=== PATIENT | male | born 1955 ===

== ENCOUNTER 2019-06-21 22:59 | Observation (INO) ==
[2019-06-21 23:49] LABS: Basophils # 0.1 10*3/uL (0.0-0.2); Basophils % 1.3 % (0.0-0.8); Eosinophils # 0.3 10*3/uL (0.0-0.87); Eosinophils % 3.3 % (0.00-10.9); Hematocrit 29.6 VOL% (42.0-52.0); Immature Granulocytes % 0.5 %; Immature Granulocytes Absolute 0.04 #; Lymphocytes # 1.8 10*3/uL (1.4-4.0); Mean Corpuscular HGB Conc 30.4 GM/DL (32-36); Mean Corpuscular Volume 93.4 FL (87-102); Mean Platelet Volume 9.8 FL (9.6-12.0); Monocytes % 8.4 % (1.7-12.7); Neutrophils % 63.5 % (38.7-73.9); Platelet Count 269 T/CUMM (130-400); Red Blood Count 3.17 MC/CUMM (3.8-5.5); Red Cell Distribution Width 17.1 % (9.3-17.3); White Blood Count 7.8 T/CUMM (4-12)
[2019-06-21 23:53] LABS: PT Patient Result 10.8 SECS (9.6-12.2)
[2019-06-22 00:09] LABS: Albumin 2.4 G/DL (3.4-5.0); Bilirubin,Total 0.6 MG/DL (0.2-1.0); Calcium 7.9 MG/DL (8.5-10.1); Osmolality,Calculated 281.8 MOS/KG (273-304); Total Protein 7.5 G/DL (6.4-8.3)
[2019-06-22] MEDS ORDERED: NITROGLYCERIN 2% OINT 1 INCH/GM PACK TOP STA (00:17)
[2019-06-22] MEDS ORDERED: ONDANSETRON 4 MG/2 ML VIAL IV PRN (01:07)
[2019-06-22] MEDS ORDERED: DEXTROSE 50% 25 GM/50 ML VIAL IV PRN (01:07)
[2019-06-22] MEDS ORDERED: GLUCAGON 1 MG VIAL IM PRN (01:07)
[2019-06-22] MEDS ORDERED: ACETAMINOPHEN 325 MG TABLET PO PRN (01:07)
[2019-06-22] MEDS: HEPARIN 5,000 UNIT/1 ML VIAL SUBCUT SCH ×2 (03:05→09:01)
[2019-06-22 08:17] LABS: Risk Ratio 2.22; VLDL CHOLESTEROL 16.6 MG/DL
[2019-06-22] MEDS: INSULIN REGULAR 100 UNIT/ML SUBCUT SCH ×2 (08:23→13:24)
[2019-06-22] MEDS ORDERED: NITROGLYCERIN 2% OINT 1 INCH/GM PACK TOP SCH (09:00)
[2019-06-22] MEDS ORDERED: cephALEXin 500 MG CAPSULE PO SCH (09:00)
[2019-06-22] MEDS ORDERED: PANTOPRAZOLE 40 MG TABLET PO SCH (09:00)
[2019-06-22] MEDS ORDERED: GABAPENTIN 300 MG CAPSULE PO SCH (09:00)
[2019-06-22] MEDS ORDERED: CLOPIDOGREL 75 MG TABLET PO SCH (09:00)
[2019-06-22] MEDS ORDERED: hydrALAZINE 25 MG TABLET PO SCH (09:00)
[2019-06-22 13:56] VITALS: BP 124/72
[2019-06-22] MEDS ORDERED: amLODIPine 5 MG TABLET PO SCH (21:00)
[2019-06-22] MEDS ORDERED: LOSARTAN 50 MG TABLET PO SCH (21:00)
[2019-06-22] MEDS ORDERED: ATORVASTATIN 40 MG TABLET PO SCH (21:00)
== END 2019-06-22 14:18 | disposition home or self-care (01) ==
LOC: EDUNIT# → EDBD → N.ED 22:59 → N.EDINP 22:59 → N.5E 06-22 01:52
PROVIDERS: ADMIT Internal Medicine; ATTEND Internal Medicine

== ENCOUNTER 2020-05-23 09:44 | Inpatient (IN) ==
[2020-05-23 10:59] LABS: Basophils % 0.3 % (0.0-0.8); Eosinophils # 0.1 10*3/uL (0.0-0.87); Eosinophils % 0.6 % (0.00-10.9); Hematocrit 27.7 VOL% (42.0-52.0); Hemoglobin 9.6 GM/DL (14.0-18.0); Immature Granulocytes % 0.5 %; Immature Granulocytes Absolute 0.06 #; Lymphocytes # 1.3 10*3/uL (1.4-4.0); Lymphocytes % 10.7 % (21.2-54.2); Mean Corpuscular HGB Conc 34.7 GM/DL (32-36); Mean Corpuscular Volume 89.6 FL (87-102); Mean Platelet Volume 10.2 FL (9.6-12.0); Monocytes % 6.3 % (1.7-12.7); Neutrophils % 81.6 % (38.7-73.9); Platelet Count 240 T/CUMM (130-400); Red Blood Count 3.09 MC/CUMM (3.8-5.5); Red Cell Distribution Width 13.1 % (9.3-17.3); White Blood Count 12.3 T/CUMM (4-12)
[2020-05-23 11:42] LABS: Calcium 8.1 MG/DL (8.5-10.1); Osmolality,Calculated 280.5 MOS/KG (273-304)
[2020-05-23 11:54] LABS: INR 1.1; PT Patient Result 11.7 SECS (9.8-11.9); Partial Thromboplastin Time 36.7 SECS (23.9-33.8)
[2020-05-23] MEDS ORDERED: ONDANSETRON 4 MG/2 ML VIAL IV PRN (14:24)
[2020-05-23] MEDS ORDERED: GLUCAGON 1 MG VIAL IM PRN (14:24)
[2020-05-23] MEDS ORDERED: DEXTROSE 50% 25 GM/50 ML VIAL IV PRN (14:24)
[2020-05-23] MEDS ORDERED: ACETAMINOPHEN 325 MG TABLET PO PRN (14:24)
[2020-05-23] MEDS: PIPERACILLIN/TAZOBACTAM 3,375 MG in SODIUM CHLORIDE 0.9% 100 ML IV SCH (16:01)
[2020-05-23] MEDS: INSULIN REGULAR 100 UNIT/ML SUBCUT SCH (17:39)
[2020-05-23] MEDS: HYDROmorphone 2 MG/1 ML VIAL IV PRN (17:39)
[2020-05-23] MEDS: carvediloL 3.125 MG TABLET PO SCH (21:38)
[2020-05-23] MEDS: LOSARTAN 50 MG TABLET PO SCH (21:39)
[2020-05-24] MEDS: INSULIN REGULAR 100 UNIT/ML SUBCUT SCH ×4 (01:07→17:49)
[2020-05-24] MEDS: PIPERACILLIN/TAZOBACTAM 3,375 MG in SODIUM CHLORIDE 0.9% 100 ML IV SCH ×2 (03:45→16:15)
[2020-05-24 05:52] LABS: INR 1.1; PT Patient Result 11.8 SECS (9.8-11.9)
[2020-05-24] MEDS ORDERED: fentaNYL 100 MCG/2 ML VIAL IV ONE (08:00)
[2020-05-24] MEDS ORDERED: MIDAZOLAM 2 MG/2 ML VIAL IV ONE (08:00)
[2020-05-24] MEDS: ATORVASTATIN 40 MG TABLET PO SCH (08:28)
[2020-05-24] MEDS: carvediloL 3.125 MG TABLET PO SCH ×2 (08:28→17:38)
[2020-05-24] MEDS: ASPIRIN EC 81 MG TABLET PO SCH (08:28)
[2020-05-24] MEDS: PANTOPRAZOLE 40 MG TABLET PO SCH (08:29)
[2020-05-24] MEDS ORDERED: HEPARIN/NACL 0.9% 2 UNITS/ML 2,000 ML IV ONE (12:21)
[2020-05-24] MEDS ORDERED: HEPARIN 5,000 UNIT/1 ML VIAL ONE (14:18)
[2020-05-24] MEDS ORDERED: HEPARIN 5,000 UNIT/1 ML VIAL IV ONE (15:15)
[2020-05-24] MEDS: LOSARTAN 50 MG TABLET PO SCH (20:42)
[2020-05-25] MEDS: INSULIN REGULAR 100 UNIT/ML SUBCUT SCH ×4 (01:34→18:01)
[2020-05-25] MEDS: PIPERACILLIN/TAZOBACTAM 3,375 MG in SODIUM CHLORIDE 0.9% 100 ML IV SCH ×2 (03:40→16:20)
[2020-05-25] MEDS: HYDROmorphone 2 MG/1 ML VIAL IV PRN (08:26)
[2020-05-25] MEDS: carvediloL 3.125 MG TABLET PO SCH ×2 (10:30→16:20)
[2020-05-25] MEDS: PANTOPRAZOLE 40 MG TABLET PO SCH (10:31)
[2020-05-25] MEDS: ASPIRIN EC 81 MG TABLET PO SCH (10:31)
[2020-05-25] MEDS: ATORVASTATIN 40 MG TABLET PO SCH (10:31)
[2020-05-25] MEDS ORDERED: LIDOCAINE 2% 5 ML VIAL ONE (14:03)
[2020-05-25] MEDS ORDERED: propofoL 200 MG/20 ML VIAL IV ONE (14:03)
[2020-05-25] MEDS ORDERED: MIDAZOLAM 2 MG/2 ML VIAL ONE (14:03)
[2020-05-25] MEDS ORDERED: PHENYLEPHRINE 1 MG/10 ML SYRINGE IV ONE (14:03)
[2020-05-25] MEDS ORDERED: SEVOFLURANE 1 UNIT/15 MINUTE INH ONE (14:03)
[2020-05-25] MEDS ORDERED: ONDANSETRON 4 MG/2 ML VIAL ONE (14:03)
[2020-05-25] MEDS ORDERED: DEXTROSE 50% 25 GM/50 ML VIAL IV PRN (16:08)
[2020-05-25] MEDS ORDERED: GLUCAGON 1 MG VIAL IM PRN (16:08)
[2020-05-25] MEDS: cilostazoL 50 MG TABLET PO SCH (20:41)
[2020-05-25] MEDS: LOSARTAN 50 MG TABLET PO SCH (21:46)
[2020-05-26] MEDS: INSULIN REGULAR 100 UNIT/ML SUBCUT SCH ×4 (01:00→18:42)
[2020-05-26] MEDS: PIPERACILLIN/TAZOBACTAM 3,375 MG in SODIUM CHLORIDE 0.9% 100 ML IV SCH ×2 (03:22→15:25)
[2020-05-26] MEDS: HYDROmorphone 2 MG/1 ML VIAL IV PRN (05:22)
[2020-05-26] MEDS: ATORVASTATIN 40 MG TABLET PO SCH (08:31)
[2020-05-26] MEDS: carvediloL 3.125 MG TABLET PO SCH ×2 (08:31→17:10)
[2020-05-26] MEDS: PANTOPRAZOLE 40 MG TABLET PO SCH (08:31)
[2020-05-26] MEDS: cilostazoL 50 MG TABLET PO SCH ×2 (08:31→22:00)
[2020-05-26] MEDS: ASPIRIN EC 81 MG TABLET PO SCH (08:31)
[2020-05-26 10:38] LABS: Basophils # 0.1 10*3/uL (0.0-0.2); Basophils % 0.4 % (0.0-0.8); Eosinophils # 0.2 10*3/uL (0.0-0.87); Eosinophils % 1.6 % (0.00-10.9); Hematocrit 27.1 VOL% (42.0-52.0); Hemoglobin 9.1 GM/DL (14.0-18.0); Immature Granulocytes % 0.6 %; Immature Granulocytes Absolute 0.09 #; Lymphocytes # 1.6 10*3/uL (1.4-4.0); Lymphocytes % 11.6 % (21.2-54.2); Mean Corpuscular HGB Conc 33.6 GM/DL (32-36); Mean Corpuscular Volume 93.4 FL (87-102); Monocytes % 8.4 % (1.7-12.7); Neutrophils % 77.4 % (38.7-73.9); Platelet Count 263 T/CUMM (130-400); Red Cell Distribution Width 13.2 % (9.3-17.3); White Blood Count 13.9 T/CUMM (4-12)
[2020-05-26] MEDS: LOSARTAN 50 MG TABLET PO SCH ×2 (22:00→22:10)
[2020-05-27] MEDS: INSULIN REGULAR 100 UNIT/ML SUBCUT SCH ×4 (00:29→18:03)
[2020-05-27] MEDS: PIPERACILLIN/TAZOBACTAM 3,375 MG in SODIUM CHLORIDE 0.9% 100 ML IV SCH (04:06)
[2020-05-27] MEDS: cilostazoL 50 MG TABLET PO SCH ×2 (08:47→21:16)
[2020-05-27] MEDS: PANTOPRAZOLE 40 MG TABLET PO SCH (08:47)
[2020-05-27] MEDS: ASPIRIN EC 81 MG TABLET PO SCH (08:47)
[2020-05-27] MEDS: ATORVASTATIN 40 MG TABLET PO SCH (08:47)
[2020-05-27] MEDS: carvediloL 3.125 MG TABLET PO SCH ×2 (08:47→17:52)
[2020-05-27] MEDS ORDERED: LOPERAMIDE 2 MG CAPSULE PO PRN (09:36)
[2020-05-27] MEDS ORDERED: LOPERAMIDE 2 MG CAPSULE PO ONE (09:45)
[2020-05-27] MEDS ORDERED: VANCOMYCIN INJ 1,000 MG in SODIUM CHLORIDE 0.9% 250 ML IV ONE (10:00)
[2020-05-27] MEDS: LACTOBACILLUS ACIDOPHILUS/BULGARICUS 1 PACKET PO SCH ×3 (13:30→21:16)
[2020-05-27] MEDS: LOSARTAN 50 MG TABLET PO SCH (21:16)
[2020-05-28] MEDS: INSULIN REGULAR 100 UNIT/ML SUBCUT SCH ×4 (01:35→17:37)
[2020-05-28] MEDS: ASPIRIN EC 81 MG TABLET PO SCH (12:32)
[2020-05-28] MEDS: carvediloL 3.125 MG TABLET PO SCH ×2 (12:32→16:34)
[2020-05-28] MEDS: LACTOBACILLUS ACIDOPHILUS/BULGARICUS 1 PACKET PO SCH ×4 (12:32→20:36)
[2020-05-28] MEDS: cilostazoL 50 MG TABLET PO SCH ×2 (12:32→20:36)
[2020-05-28] MEDS: ATORVASTATIN 40 MG TABLET PO SCH (12:32)
[2020-05-28] MEDS: PANTOPRAZOLE 40 MG TABLET PO SCH (12:33)
[2020-05-28] MEDS: LOSARTAN 50 MG TABLET PO SCH (20:36)
[2020-05-29] MEDS: INSULIN REGULAR 100 UNIT/ML SUBCUT SCH ×4 (00:01→17:21)
[2020-05-29] MEDS: carvediloL 3.125 MG TABLET PO SCH ×2 (07:42→17:00)
[2020-05-29] MEDS: cilostazoL 50 MG TABLET PO SCH ×2 (09:00→20:24)
[2020-05-29] MEDS: LACTOBACILLUS ACIDOPHILUS/BULGARICUS 1 PACKET PO SCH ×4 (09:00→20:23)
[2020-05-29] MEDS: PANTOPRAZOLE 40 MG TABLET PO SCH (09:00)
[2020-05-29] MEDS: ASPIRIN EC 81 MG TABLET PO SCH (09:00)
[2020-05-29] MEDS: ATORVASTATIN 40 MG TABLET PO SCH (09:00)
[2020-05-29] MEDS: LOSARTAN 50 MG TABLET PO SCH (20:24)
[2020-05-30] MEDS: INSULIN REGULAR 100 UNIT/ML SUBCUT SCH ×4 (00:27→18:12)
[2020-05-30] MEDS: cilostazoL 50 MG TABLET PO SCH ×2 (09:01→20:42)
[2020-05-30] MEDS: PANTOPRAZOLE 40 MG TABLET PO SCH (09:01)
[2020-05-30] MEDS: ASPIRIN EC 81 MG TABLET PO SCH (09:01)
[2020-05-30] MEDS: carvediloL 3.125 MG TABLET PO SCH ×2 (09:01→16:42)
[2020-05-30] MEDS: LACTOBACILLUS ACIDOPHILUS/BULGARICUS 1 PACKET PO SCH ×4 (09:01→20:42)
[2020-05-30] MEDS: ATORVASTATIN 40 MG TABLET PO SCH (09:01)
[2020-05-30] MEDS: LOSARTAN 50 MG TABLET PO SCH (20:42)
[2020-05-31] MEDS: INSULIN REGULAR 100 UNIT/ML SUBCUT SCH ×5 (00:57→23:59)
[2020-05-31 08:28] LABS: Calcium 8.6 MG/DL (8.5-10.1); Osmolality,Calculated 274.2 MOS/KG (273-304)
[2020-05-31] MEDS ORDERED: propofoL 200 MG/20 ML VIAL IV ONE (12:18)
[2020-05-31] MEDS ORDERED: ePHEDrine 50 MG/ML VIAL ONE (12:19)
[2020-05-31] MEDS ORDERED: MIDAZOLAM 2 MG/2 ML VIAL ONE (12:19)
[2020-05-31] MEDS ORDERED: LIDOCAINE 2% 5 ML VIAL ONE (12:19)
[2020-05-31] MEDS ORDERED: SEVOFLURANE 1 UNIT/15 MINUTE INH ONE (12:19)
[2020-05-31] MEDS ORDERED: fentaNYL 100 MCG/2 ML VIAL ONE (12:19)
[2020-05-31] MEDS ORDERED: PHENYLEPHRINE 1 MG/10 ML SYRINGE IV ONE (12:20)
[2020-05-31] MEDS: carvediloL 3.125 MG TABLET PO SCH ×2 (13:46→17:58)
[2020-05-31] MEDS: cilostazoL 50 MG TABLET PO SCH ×2 (13:47→21:24)
[2020-05-31] MEDS: ATORVASTATIN 40 MG TABLET PO SCH (13:47)
[2020-05-31] MEDS: LACTOBACILLUS ACIDOPHILUS/BULGARICUS 1 PACKET PO SCH ×4 (13:47→21:23)
[2020-05-31] MEDS: PANTOPRAZOLE 40 MG TABLET PO SCH (13:47)
[2020-05-31] MEDS: ASPIRIN EC 81 MG TABLET PO SCH (13:47)
[2020-05-31] MEDS ORDERED: VANCOMYCIN INJ 1,000 MG in SODIUM CHLORIDE 0.9% 250 ML IV ONE (16:25)
[2020-05-31] MEDS: LOSARTAN 50 MG TABLET PO SCH (21:24)
[2020-06-01] MEDS: INSULIN REGULAR 100 UNIT/ML SUBCUT SCH ×3 (06:20→17:29)
[2020-06-01] MEDS: ASPIRIN EC 81 MG TABLET PO SCH (09:23)
[2020-06-01] MEDS: PANTOPRAZOLE 40 MG TABLET PO SCH (09:23)
[2020-06-01] MEDS: ATORVASTATIN 40 MG TABLET PO SCH (09:23)
[2020-06-01] MEDS: LACTOBACILLUS ACIDOPHILUS/BULGARICUS 1 PACKET PO SCH ×4 (09:23→22:38)
[2020-06-01] MEDS: cilostazoL 50 MG TABLET PO SCH ×2 (09:23→22:37)
[2020-06-01] MEDS: carvediloL 3.125 MG TABLET PO SCH ×2 (09:23→16:47)
[2020-06-01] MEDS: LOSARTAN 50 MG TABLET PO SCH (22:37)
[2020-06-02] MEDS: INSULIN REGULAR 100 UNIT/ML SUBCUT SCH ×3 (01:10→18:29)
[2020-06-02 08:56] LABS: Basophils % 0.2 % (0.0-0.8); Eosinophils # 0.2 10*3/uL (0.0-0.87); Eosinophils % 1.9 % (0.00-10.9); Hemoglobin 7.4 GM/DL (14.0-18.0); Immature Granulocytes % 0.8 %; Immature Granulocytes Absolute 0.07 #; Lymphocytes # 1.3 10*3/uL (1.4-4.0); Lymphocytes % 14.1 % (21.2-54.2); Mean Corpuscular HGB Conc 33.6 GM/DL (32-36); Mean Corpuscular Volume 91.7 FL (87-102); Mean Platelet Volume 9.9 FL (9.6-12.0); Monocytes % 6.9 % (1.7-12.7); Neutrophils % 76.1 % (38.7-73.9); Platelet Count 294 T/CUMM (130-400); Red Cell Distribution Width 12.8 % (9.3-17.3); White Blood Count 8.9 T/CUMM (4-12)
[2020-06-02 09:32] LABS: Calcium 8.2 MG/DL (8.5-10.1); Osmolality,Calculated 276.5 MOS/KG (273-304)
[2020-06-02] MEDS ORDERED: VANCOMYCIN 500 MG VIAL ONE (12:45)
[2020-06-02] MEDS ORDERED: GLUCAGON 1 MG VIAL IM PRN (13:37)
[2020-06-02] MEDS ORDERED: DEXTROSE 50% 25 GM/50 ML VIAL IV PRN (13:37)
[2020-06-02] MEDS ORDERED: propofoL 200 MG/20 ML VIAL IV ONE (13:48)
[2020-06-02] MEDS ORDERED: SEVOFLURANE 1 UNIT/15 MINUTE INH ONE (13:48)
[2020-06-02] MEDS ORDERED: PHENYLEPHRINE DRIP 20 MG/250 ML PREMIX IV ONE (13:49)
[2020-06-02] MEDS ORDERED: MIDAZOLAM 2 MG/2 ML VIAL ONE (13:49)
[2020-06-02] MEDS ORDERED: fentaNYL 100 MCG/2 ML VIAL ONE (13:49)
[2020-06-02] MEDS ORDERED: PHENYLEPHRINE 1 MG/10 ML SYRINGE IV ONE (13:49)
[2020-06-02] MEDS ORDERED: SODIUM CHLORIDE 0.9% 1,000 ML IV PRN (14:10)
[2020-06-02] MEDS: oxyCODONE/ACETAMINOPHEN 5-325 MG TABLET PO PRN ×2 (14:34→16:58)
[2020-06-02] MEDS: ASPIRIN EC 81 MG TABLET PO SCH (18:26)
[2020-06-02] MEDS: LACTOBACILLUS ACIDOPHILUS/BULGARICUS 1 PACKET PO SCH ×3 (18:26→20:11)
[2020-06-02] MEDS: carvediloL 3.125 MG TABLET PO SCH (18:26)
[2020-06-02] MEDS: ATORVASTATIN 40 MG TABLET PO SCH (18:27)
[2020-06-02] MEDS: cilostazoL 50 MG TABLET PO SCH (18:27)
[2020-06-02] MEDS: PANTOPRAZOLE 40 MG TABLET PO SCH (18:27)
[2020-06-02] MEDS: HYDROmorphone 2 MG/1 ML VIAL IV PRN (20:07)
[2020-06-03] MEDS: HYDROmorphone 2 MG/1 ML VIAL IV PRN ×5 (01:02→20:12)
[2020-06-03] MEDS: cilostazoL 50 MG TABLET PO SCH ×3 (01:05→20:11)
[2020-06-03] MEDS: INSULIN REGULAR 100 UNIT/ML SUBCUT SCH ×5 (01:06→23:27)
[2020-06-03] MEDS: LOSARTAN 50 MG TABLET PO SCH ×2 (01:07→20:11)
[2020-06-03] MEDS: oxyCODONE/ACETAMINOPHEN 5-325 MG TABLET PO PRN ×4 (02:32→23:19)
[2020-06-03 05:50] LABS: Basophils % 0.3 % (0.0-0.8); Eosinophils # 0.2 10*3/uL (0.0-0.87); Eosinophils % 1.6 % (0.00-10.9); Hematocrit 31.8 VOL% (42.0-52.0); Immature Granulocytes % 0.9 %; Immature Granulocytes Absolute 0.11 #; Lymphocytes # 1.7 10*3/uL (1.4-4.0); Lymphocytes % 14.2 % (21.2-54.2); Mean Corpuscular HGB Conc 32.7 GM/DL (32-36); Mean Corpuscular Volume 92.7 FL (87-102); Monocytes % 8.1 % (1.7-12.7); Neutrophils % 74.9 % (38.7-73.9); Platelet Count 295 T/CUMM (130-400); Red Blood Count 3.43 MC/CUMM (3.8-5.5); Red Cell Distribution Width 13.3 % (9.3-17.3); White Blood Count 11.9 T/CUMM (4-12)
[2020-06-03 05:55] LABS: Hemoglobin 10.4 GM/DL (14.0-18.0)
[2020-06-03 06:14] LABS: Calcium 8.5 MG/DL (8.5-10.1); Osmolality,Calculated 273.2 MOS/KG (273-304)
[2020-06-03] MEDS: PANTOPRAZOLE 40 MG TABLET PO SCH (09:04)
[2020-06-03] MEDS: carvediloL 3.125 MG TABLET PO SCH ×2 (09:04→17:13)
[2020-06-03] MEDS: ASPIRIN EC 81 MG TABLET PO SCH (09:04)
[2020-06-03] MEDS: LACTOBACILLUS ACIDOPHILUS/BULGARICUS 1 PACKET PO SCH ×4 (09:04→20:11)
[2020-06-03] MEDS: ATORVASTATIN 40 MG TABLET PO SCH (09:04)
[2020-06-04] MEDS: HYDROmorphone 2 MG/1 ML VIAL IV PRN (01:24)
[2020-06-04] MEDS: INSULIN REGULAR 100 UNIT/ML SUBCUT SCH ×4 (05:34→23:34)
[2020-06-04] MEDS: oxyCODONE/ACETAMINOPHEN 5-325 MG TABLET PO PRN ×2 (06:08→18:12)
[2020-06-04] MEDS: LACTOBACILLUS ACIDOPHILUS/BULGARICUS 1 PACKET PO SCH ×4 (08:50→23:16)
[2020-06-04] MEDS: cilostazoL 50 MG TABLET PO SCH ×2 (08:50→23:16)
[2020-06-04] MEDS: ASPIRIN EC 81 MG TABLET PO SCH (08:51)
[2020-06-04] MEDS: PANTOPRAZOLE 40 MG TABLET PO SCH (08:51)
[2020-06-04] MEDS: ATORVASTATIN 40 MG TABLET PO SCH (08:51)
[2020-06-04] MEDS: carvediloL 3.125 MG TABLET PO SCH ×2 (08:51→18:13)
[2020-06-04] MEDS: METHOCARBAMOL 750 MG TABLET PO SCH ×2 (18:13→23:16)
[2020-06-04] MEDS: GABAPENTIN 300 MG CAPSULE PO SCH ×2 (18:13→23:16)
[2020-06-04] MEDS: LOSARTAN 50 MG TABLET PO SCH (23:23)
[2020-06-05] MEDS: oxyCODONE/ACETAMINOPHEN 5-325 MG TABLET PO PRN (00:39)
[2020-06-05 05:14] LABS: Basophils # 0.1 10*3/uL (0.0-0.2); Basophils % 0.6 % (0.0-0.8); Eosinophils # 0.2 10*3/uL (0.0-0.87); Eosinophils % 2.1 % (0.00-10.9); Hematocrit 26.4 VOL% (42.0-52.0); Hemoglobin 8.8 GM/DL (14.0-18.0); Immature Granulocytes % 1.3 %; Immature Granulocytes Absolute 0.14 #; Lymphocytes # 1.8 10*3/uL (1.4-4.0); Lymphocytes % 16.7 % (21.2-54.2); Mean Corpuscular HGB Conc 33.3 GM/DL (32-36); Mean Corpuscular Volume 91.7 FL (87-102); Mean Platelet Volume 9.6 FL (9.6-12.0); Neutrophils % 70.3 % (38.7-73.9); Platelet Count 290 T/CUMM (130-400); Red Blood Count 2.88 MC/CUMM (3.8-5.5); White Blood Count 10.7 T/CUMM (4-12)
[2020-06-05 05:57] LABS: Albumin 2.1 G/DL (3.4-5.0); Bilirubin,Total 0.7 MG/DL (0.2-1.0); Calcium 8.3 MG/DL (8.5-10.1); Osmolality,Calculated 269.5 MOS/KG (273-304); Total Protein 7.2 G/DL (6.4-8.3)
[2020-06-05] MEDS: INSULIN REGULAR 100 UNIT/ML SUBCUT SCH ×3 (06:29→17:23)
[2020-06-05] MEDS: carvediloL 3.125 MG TABLET PO SCH ×2 (09:35→16:33)
[2020-06-05] MEDS: ATORVASTATIN 40 MG TABLET PO SCH (09:35)
[2020-06-05] MEDS: LACTOBACILLUS ACIDOPHILUS/BULGARICUS 1 PACKET PO SCH ×4 (09:35→20:27)
[2020-06-05] MEDS: ASPIRIN EC 81 MG TABLET PO SCH (09:35)
[2020-06-05] MEDS: METHOCARBAMOL 750 MG TABLET PO SCH ×3 (09:36→20:27)
[2020-06-05] MEDS: GABAPENTIN 300 MG CAPSULE PO SCH ×3 (09:36→20:27)
[2020-06-05] MEDS: cilostazoL 50 MG TABLET PO SCH ×2 (09:36→20:27)
[2020-06-05] MEDS: PANTOPRAZOLE 40 MG TABLET PO SCH (09:36)
[2020-06-05] MEDS: LOSARTAN 50 MG TABLET PO SCH (20:27)
[2020-06-06] MEDS: INSULIN REGULAR 100 UNIT/ML SUBCUT SCH ×3 (00:12→12:05)
[2020-06-06] MEDS: oxyCODONE/ACETAMINOPHEN 5-325 MG TABLET PO PRN ×3 (07:38→15:28)
[2020-06-06] MEDS: GABAPENTIN 300 MG CAPSULE PO SCH ×2 (08:08→15:25)
[2020-06-06] MEDS: ATORVASTATIN 40 MG TABLET PO SCH (08:08)
[2020-06-06] MEDS: carvediloL 3.125 MG TABLET PO SCH (08:08)
[2020-06-06] MEDS: cilostazoL 50 MG TABLET PO SCH (08:09)
[2020-06-06] MEDS: ASPIRIN EC 81 MG TABLET PO SCH (08:09)
[2020-06-06] MEDS: METHOCARBAMOL 750 MG TABLET PO SCH ×2 (08:09→15:26)
[2020-06-06] MEDS: LACTOBACILLUS ACIDOPHILUS/BULGARICUS 1 PACKET PO SCH ×2 (08:09→12:04)
[2020-06-06] MEDS: PANTOPRAZOLE 40 MG TABLET PO SCH (08:09)
[2020-06-06 11:08] VITALS: BP 99/59
== END 2020-06-06 17:06 | DRG 239 ==
LOC: N.ED 09:44 → N.EDINP 13:05 → N.3E 14:23
PROVIDERS: ADMIT Surgery; ATTEND Surgery

== ENCOUNTER 2020-07-14 14:27 | Inpatient (IN) ==
[2020-07-14 15:05] LABS: Basophils # 0.1 10*3/uL (0.0-0.2); Basophils % 0.8 % (0.0-0.8); Eosinophils # 0.2 10*3/uL (0.0-0.87); Eosinophils % 2.3 % (0.00-10.9); Hematocrit 28.4 VOL% (42.0-52.0); Hemoglobin 9.3 GM/DL (14.0-18.0); Immature Granulocytes % 0.3 %; Immature Granulocytes Absolute 0.03 #; Lymphocytes # 1.6 10*3/uL (1.4-4.0); Lymphocytes % 16.9 % (21.2-54.2); Mean Corpuscular HGB Conc 32.7 GM/DL (32-36); Mean Corpuscular Volume 91.6 FL (87-102); Mean Platelet Volume 10.2 FL (9.6-12.0); Monocytes % 8.9 % (1.7-12.7); Neutrophils % 70.8 % (38.7-73.9); Platelet Count 192 T/CUMM (130-400); Red Cell Distribution Width 13.5 % (9.3-17.3); White Blood Count 9.2 T/CUMM (4-12)
[2020-07-14 15:37] LABS: Albumin 2.8 G/DL (3.4-5.0); Bilirubin,Total 0.8 MG/DL (0.2-1.0); Osmolality,Calculated 278.7 MOS/KG (273-304); Total Protein 7.4 G/DL (6.4-8.3)
[2020-07-14] MEDS ORDERED: MORPHINE 4 MG/1 ML VIAL IV PRN (16:58)
[2020-07-14] MEDS ORDERED: ALUMINUM/MAGNES/SIMETH MAX STR 30 ML UDCUP PO PRN (16:58)
[2020-07-14] MEDS ORDERED: ZALEPLON 5 MG CAPSULE PO PRN (16:58)
[2020-07-14] MEDS ORDERED: ONDANSETRON 4 MG/2 ML VIAL IV PRN (16:58)
[2020-07-14] MEDS ORDERED: MAGNESIUM SULF RIDER 4 GM in PREMIX 1 EACH IV PRN (16:58)
[2020-07-14] MEDS ORDERED: POTASSIUM CHLORIDE 20 MEQ TABLET PO PRN (16:58)
[2020-07-14] MEDS ORDERED: hydrALAZINE 20 MG/1 ML VIAL IV PRN (16:58)
[2020-07-14] MEDS ORDERED: DEXTROSE 50% 25 GM/50 ML VIAL IV PRN (16:58)
[2020-07-14] MEDS ORDERED: ACETAMINOPHEN 325 MG TABLET PO PRN (16:58)
[2020-07-14] MEDS ORDERED: diphenhydrAMINE CAP 25 MG CAPSULE PO PRN (16:58)
[2020-07-14] MEDS ORDERED: DOCUSATE SODIUM 100 MG CAPSULE PO PRN (16:58)
[2020-07-14] MEDS ORDERED: guaiFENesin/DM ER 600-30 MG TABLET PO PRN (16:58)
[2020-07-14] MEDS ORDERED: MAGNESIUM SULF RIDER 2 GM in PREMIX 1 EACH IV PRN (16:58)
[2020-07-14] MEDS ORDERED: GLUCAGON 1 MG VIAL IM PRN (16:58)
[2020-07-14] MEDS ORDERED: ASPIRIN 325 MG TABLET PO STA (17:01)
[2020-07-14] MEDS ORDERED: NITROGLYCERIN SL 0.4 MG TABLET SL PRN (17:07)
[2020-07-14 18:04] LABS: CKMB % 3.4 %
[2020-07-14 18:06] LABS: Troponin I 17.2 NG/ML (0.00-0.045)
[2020-07-14] MEDS: HEPARIN DRIP 25,000 UNITS/500 ML PREMIX IV SCH (18:20)
[2020-07-14 20:35] LABS: CKMB % 3.3 %
[2020-07-14] MEDS: carvediloL 3.125 MG TABLET PO SCH (21:03)
[2020-07-14] MEDS: ROSUVASTATIN 20 MG TABLET PO SCH (21:03)
[2020-07-14] MEDS: INSULIN REGULAR 100 UNIT/ML SUBCUT SCH (21:04)
[2020-07-15 01:21] LABS: Basophils # 0.1 10*3/uL (0.0-0.2); Basophils % 0.8 % (0.0-0.8); Eosinophils # 0.3 10*3/uL (0.0-0.87); Eosinophils % 3.7 % (0.00-10.9); Hematocrit 26.6 VOL% (42.0-52.0); Hemoglobin 8.7 GM/DL (14.0-18.0); Immature Granulocytes % 0.4 %; Immature Granulocytes Absolute 0.03 #; Lymphocytes # 1.6 10*3/uL (1.4-4.0); Lymphocytes % 20.4 % (21.2-54.2); Mean Corpuscular HGB Conc 32.7 GM/DL (32-36); Mean Platelet Volume 10.8 FL (9.6-12.0); Monocytes % 10.9 % (1.7-12.7); Neutrophils % 63.8 % (38.7-73.9); Platelet Count 173 T/CUMM (130-400); Red Blood Count 2.89 MC/CUMM (3.8-5.5); Red Cell Distribution Width 13.5 % (9.3-17.3); White Blood Count 7.6 T/CUMM (4-12)
[2020-07-15 01:53] LABS: Alanine Aminotransferase 16 U/L (16-61); Albumin 2.3 G/DL (3.4-5.0); Alkaline Phosphatase 95 U/L (45-117); Aspartate Amino Transferase 46 U/L (0-37); Blood Urea Nitrogen 19 MG/DL (7-18); Calcium 7.7 MG/DL (8.5-10.1); Estimated Glom Filtration Rate 10 ML/MIN; Glucose 166 MG/DL (74-106); HDL Cholesterol 34 MG/DL (40-60); Osmolality,Calculated 278.8 MOS/KG (273-304); Risk Ratio 2.82; Total Protein 6.7 G/DL (6.4-8.3); Triglycerides 116 MG/DL (2-150); VLDL CHOLESTEROL 23.2 MG/DL
[2020-07-15] MEDS: POTASSIUM CHLORIDE RIDER 10 MEQ in PREMIX 1 EACH IV PRN ×4 (04:01→10:31)
[2020-07-15] MEDS: INSULIN REGULAR 100 UNIT/ML SUBCUT SCH ×4 (07:37→20:47)
[2020-07-15] MEDS: ASPIRIN EC 325 MG TABLET PO SCH (09:36)
[2020-07-15] MEDS: carvediloL 3.125 MG TABLET PO SCH ×2 (09:36→20:50)
[2020-07-15] MEDS: PANTOPRAZOLE 40 MG TABLET PO SCH (09:41)
[2020-07-15] MEDS ORDERED: LIDOCAINE 1% 20 ML VIAL ONE (13:36)
[2020-07-15] MEDS ORDERED: HEPARIN/NACL 0.9% 2 UNITS/ML 1,000 ML IV ONE (13:36)
[2020-07-15] MEDS ORDERED: HEPARIN/NACL 0.9% 2 UNITS/ML 500 ML IV ONE (14:01)
[2020-07-15] MEDS ORDERED: fentaNYL 100 MCG/2 ML VIAL ONE (14:11)
[2020-07-15] MEDS ORDERED: MIDAZOLAM 2 MG/2 ML VIAL ONE (14:11)
[2020-07-15] MEDS ORDERED: GLUCAGON 1 MG VIAL IM PRN (14:59)
[2020-07-15] MEDS ORDERED: DEXTROSE 50% 25 GM/50 ML VIAL IV PRN (14:59)
[2020-07-15] MEDS: ROSUVASTATIN 20 MG TABLET PO SCH (20:50)
[2020-07-15] MEDS: HEPARIN DRIP 25,000 UNITS/500 ML PREMIX IV SCH ×2 (20:52→23:15)
[2020-07-16 06:04] LABS: Basophils # 0.1 10*3/uL (0.0-0.2); Basophils % 0.8 % (0.0-0.8); Eosinophils # 0.2 10*3/uL (0.0-0.87); Eosinophils % 1.5 % (0.00-10.9); Hematocrit 28.4 VOL% (42.0-52.0); Hemoglobin 9.4 GM/DL (14.0-18.0); Immature Granulocytes % 0.5 %; Immature Granulocytes Absolute 0.05 #; Lymphocytes # 1.2 10*3/uL (1.4-4.0); Lymphocytes % 11.2 % (21.2-54.2); Mean Corpuscular HGB Conc 33.1 GM/DL (32-36); Mean Corpuscular Volume 91.6 FL (87-102); Mean Platelet Volume 10.9 FL (9.6-12.0); Platelet Count 188 T/CUMM (130-400); Red Cell Distribution Width 13.8 % (9.3-17.3); White Blood Count 10.3 T/CUMM (4-12)
[2020-07-16 06:26] LABS: Blood Urea Nitrogen 31 MG/DL (7-18); Calcium 8.2 MG/DL (8.5-10.1); Estimated Glom Filtration Rate 7 ML/MIN; Glucose 136 MG/DL (74-106); Osmolality,Calculated 272.5 MOS/KG (273-304)
[2020-07-16] MEDS: INSULIN REGULAR 100 UNIT/ML SUBCUT SCH ×4 (07:55→20:37)
[2020-07-16] MEDS ORDERED: DEXTROSE 50% 25 GM/50 ML VIAL IV PRN (09:21)
[2020-07-16] MEDS ORDERED: GLUCAGON 1 MG VIAL IM PRN (09:21)
[2020-07-16] MEDS: carvediloL 3.125 MG TABLET PO SCH (09:37)
[2020-07-16] MEDS: PANTOPRAZOLE 40 MG TABLET PO SCH (09:37)
[2020-07-16] MEDS: ASPIRIN EC 325 MG TABLET PO SCH (09:37)
[2020-07-16 09:52] LABS: ABG Base Excess 7.6 MMOL/L (-2.5-2.5); ABG HCO3 30.1 MMOL/L (20-26); ABG Oxygen Saturation 97.7 % (95-100); ABG PCO2 34.2 MM HG (35-48); ABG PH 7.563 (7.35-7.45); ABG PO2 97.6 MM HG (80-95); ABG TCO2 31.2 MMOL/L (23-27)
[2020-07-16] MEDS: HEPARIN DRIP 25,000 UNITS/500 ML PREMIX IV SCH (19:42)
[2020-07-16] MEDS: carvediloL 6.25 MG TABLET PO SCH (20:36)
[2020-07-16] MEDS: ROSUVASTATIN 20 MG TABLET PO SCH (20:37)
[2020-07-16 20:40] LABS: INR 1.1; PT Patient Result 11.4 SECS (9.8-11.9)
[2020-07-17] MEDS: HEPARIN DRIP 25,000 UNITS/500 ML PREMIX IV SCH ×2 (03:09→20:39)
[2020-07-17 06:23] LABS: Basophils # 0.1 10*3/uL (0.0-0.2); Basophils % 0.7 % (0.0-0.8); Eosinophils # 0.2 10*3/uL (0.0-0.87); Eosinophils % 3.2 % (0.00-10.9); Hematocrit 27.2 VOL% (42.0-52.0); Hemoglobin 8.7 GM/DL (14.0-18.0); Immature Granulocytes % 0.4 %; Immature Granulocytes Absolute 0.03 #; Lymphocytes % 14.4 % (21.2-54.2); Mean Corpuscular Volume 93.2 FL (87-102); Mean Platelet Volume 10.9 FL (9.6-12.0); Monocytes % 8.5 % (1.7-12.7); Neutrophils % 72.8 % (38.7-73.9); Platelet Count 182 T/CUMM (130-400); Red Blood Count 2.92 MC/CUMM (3.8-5.5); Red Cell Distribution Width 14.1 % (9.3-17.3); White Blood Count 7.2 T/CUMM (4-12)
[2020-07-17 06:32] LABS: INR 1.1; PT Patient Result 11.3 SECS (9.8-11.9); Partial Thromboplastin Time 59.7 SECS (23.9-33.8)
[2020-07-17 06:45] LABS: Calcium 8.2 MG/DL (8.5-10.1)
[2020-07-17 07:01] LABS: Albumin 2.4 G/DL (3.4-5.0); Bilirubin,Total 1.6 MG/DL (0.2-1.0); Calcium 8.4 MG/DL (8.5-10.1); Total Protein 7.2 G/DL (6.4-8.3)
[2020-07-17] MEDS: INSULIN REGULAR 100 UNIT/ML SUBCUT SCH ×4 (08:08→20:41)
[2020-07-17] MEDS: carvediloL 6.25 MG TABLET PO SCH (09:29)
[2020-07-17] MEDS: CHLORHEXIDINE 0.12% ORAL RINSE 60 ML BOTTLE SWISH/SPIT SCH ×2 (09:29→20:36)
[2020-07-17] MEDS: SODIUM HYPOCHLORITE 0.25% IRRIG 473 ML BOTTLE TOP SCH (09:29)
[2020-07-17] MEDS: ASPIRIN EC 325 MG TABLET PO SCH (09:29)
[2020-07-17] MEDS: PANTOPRAZOLE 40 MG TABLET PO SCH (09:29)
[2020-07-17] MEDS: CHLORHEXIDINE 4% SOLN 118 ML BOTTLE TOP SCH ×2 (15:07→21:49)
[2020-07-17 20:34] LABS: INR 1.1; PT Patient Result 11.4 SECS (9.8-11.9)
[2020-07-17 20:35] LABS: Partial Thromboplastin Time 64.6 SECS (23.9-33.8)
[2020-07-17] MEDS: ROSUVASTATIN 20 MG TABLET PO SCH (20:35)
[2020-07-17] MEDS: carvediloL 12.5 MG TABLET PO SCH (20:41)
[2020-07-18] MEDS ORDERED: VANCOMYCIN 500 MG VIAL ONE (04:24)
[2020-07-18] MEDS ORDERED: PAPAVERINE 60 MG/2 ML VIAL ONE (04:24)
[2020-07-18] MEDS ORDERED: VANCOMYCIN 1,000 MG VIAL ONE (04:24)
[2020-07-18] MEDS: CHLORHEXIDINE 4% SOLN 118 ML BOTTLE TOP SCH ×2 (04:45→13:56)
[2020-07-18] MEDS ORDERED: SODIUM CHLORIDE 0.9% 1,000 ML IV SCH (05:00)
[2020-07-18] MEDS ORDERED: CEFUROXIME INJ 1,500 MG in SYRINGE 1 EACH IV ONE (05:00)
[2020-07-18 05:52] LABS: Basophils # 0.1 10*3/uL (0.0-0.2); Basophils % 0.8 % (0.0-0.8); Eosinophils # 0.2 10*3/uL (0.0-0.87); Eosinophils % 2.4 % (0.00-10.9); Hematocrit 27.8 VOL% (42.0-52.0); Hemoglobin 9.1 GM/DL (14.0-18.0); Immature Granulocytes % 0.6 %; Immature Granulocytes Absolute 0.05 #; Lymphocytes # 1.1 10*3/uL (1.4-4.0); Lymphocytes % 12.3 % (21.2-54.2); Mean Corpuscular HGB Conc 32.7 GM/DL (32-36); Mean Corpuscular Volume 92.1 FL (87-102); Mean Platelet Volume 11.2 FL (9.6-12.0); Monocytes % 6.9 % (1.7-12.7); Platelet Count 205 T/CUMM (130-400); Red Blood Count 3.02 MC/CUMM (3.8-5.5); Red Cell Distribution Width 14.1 % (9.3-17.3); White Blood Count 8.7 T/CUMM (4-12)
[2020-07-18 05:58] LABS: Calcium 8.3 MG/DL (8.5-10.1); Osmolality,Calculated 275.1 MOS/KG (273-304)
[2020-07-18] MEDS ORDERED: DIAZEPAM 5 MG TABLET PO ONE ×2 (05:58→06:03)
[2020-07-18] MEDS ORDERED: PANTOPRAZOLE 40 MG TABLET PO ONE (05:59)
[2020-07-18] MEDS ORDERED: FAMOTIDINE 20 MG/2 ML VIAL IV ONE ×2 (06:02→09:39)
[2020-07-18] MEDS ORDERED: MIDAZOLAM 10 MG/2 ML VIAL ONE ×3 (06:07)
[2020-07-18] MEDS ORDERED: SUFentanil 250 MCG/5 ML AMP ONE (06:07)
[2020-07-18] MEDS ORDERED: PHENYLEPHRINE 1 MG/10 ML SYRINGE IV ONE (06:13)
[2020-07-18] MEDS ORDERED: VECURONIUM 10 MG VIAL IV ONE ×3 (06:13)
[2020-07-18] MEDS ORDERED: ETOMIDATE 40 MG/20 ML VIAL IV ONE (06:13)
[2020-07-18] MEDS ORDERED: PHENYLEPHRINE DRIP 20 MG/250 ML PREMIX IV ONE (06:26)
[2020-07-18] MEDS ORDERED: AMINOCAPROIC ACID 5,000 MG/20 ML VIAL ONE ×4 (06:26)
[2020-07-18] MEDS ORDERED: SODIUM BICARBONATE 50 MEQ/50 ML VIAL IV ONE ×2 (07:40→11:12)
[2020-07-18] MEDS ORDERED: NITROPRUSSIDE 50 MG/2 ML VIAL ONE (07:41)
[2020-07-18] MEDS ORDERED: PHENYLEPHRINE DRIP 40 MG/250 ML PREMIX IV ONE (07:41)
[2020-07-18] MEDS ORDERED: CALCIUM CHLORIDE 1,000 MG/10 ML SYRINGE IV ONE (07:41)
[2020-07-18] MEDS ORDERED: POTASSIUM CHLORIDE RIDER 100 ML IV ONE (07:41)
[2020-07-18 07:51] LABS: ABG Base Excess 2.6 MMOL/L (-2.5-2.5); ABG HCO3 26.8 MMOL/L (20-26); ABG PCO2 29.5 MM HG (35-48); ABG PH 7.534 (7.35-7.45); Glucose Heart Surgery 114 MG/DL (74-106); Hemoglobin Heart Surgery 8.4 G/DL (14.0-18.0); Ionized Calcium Arterial 1.05 MMOL/L (1.21-1.46); PCO2 Patient Temp Arterial 29.5 MMHG; PH Patient Temp Arterial 7.534; Patient Temperature 37 CELCIUS; Potassium Heart/CVR 3.4 MMOL/L (3.5-5.1); Sodium Heart/CVR 137 MMOL/L (135-145)
[2020-07-18] MEDS ORDERED: DOBUTamine 500 MG/250 ML PREMIX IV ONE ×2 (07:56→11:29)
[2020-07-18] MEDS ORDERED: SODIUM CHLORIDE 0.9% 250 ML IV ONE (07:56)
[2020-07-18] MEDS ORDERED: SODIUM CHLORIDE 0.9% 100 ML IV ONE (07:56)
[2020-07-18] MEDS ORDERED: SODIUM CHLORIDE 0.9% 1,000 ML IV ONE (07:56)
[2020-07-18] MEDS ORDERED: LACTATED RINGERS 1,000 ML IV ONE (07:56)
[2020-07-18] MEDS ORDERED: LIDOCAINE 2% 5 ML VIAL ONE ×2 (08:18→11:10)
[2020-07-18] MEDS ORDERED: METOPROLOL TARTRATE 5 MG/5 ML VIAL IV ONE (08:34)
[2020-07-18] MEDS ORDERED: NITROGLYCERIN DRIP 50 MG/250 ML BOTTLE IV ONE (09:05)
[2020-07-18 09:18] LABS: Glucose Heart Surgery 366 MG/DL (74-106); Hemoglobin Heart Surgery < 5.0 G/DL (14.0-18.0); PCO2 Patient Temp Venous 33.4 MM HG; PH Patient Temp Venous 7.486; PO2 Patient Temp Venous 32.1 MM HG; Patient Temperature 35 CELCIUS; Sodium Heart/CVR 127 MMOL/L (135-145); VBG Oxygen Saturation 69.6 %; VBG PCO2 36.8 MMHG (41-51); VBG PH 7.456; VBG PO2 36.8 MMHG (17-40)
[2020-07-18 09:19] LABS: Hematocrit Heart Surgery 14.2 PERCENT (42-52)
[2020-07-18] MEDS ORDERED: diphenhydrAMINE 50 MG/1 ML VIAL ONE (09:39)
[2020-07-18 09:46] LABS: Hematocrit Heart Surgery 18.2 PERCENT (42-52); Hemoglobin Heart Surgery 5.8 G/DL (14.0-18.0); PCO2 Patient Temp Venous 26.5 MM HG; PH Patient Temp Venous 7.565; PO2 Patient Temp Venous 31.7 MM HG; Potassium Heart/CVR 3.8 MMOL/L (3.5-5.1); VBG Base Excess 2.1 MEQ/L (0-4); VBG HCO3 26.1 MEQ/L (24-28); VBG Oxygen Saturation 75.9 %; VBG PCO2 30.6 MMHG (41-51); VBG PH 7.519; VBG PO2 39.1 MMHG (17-40)
[2020-07-18 10:16] LABS: Hemoglobin Heart Surgery 8.8 G/DL (14.0-18.0); PCO2 Patient Temp Venous 25.9 MM HG; PH Patient Temp Venous 7.559; PO2 Patient Temp Venous 43.6 MM HG; Potassium Heart/CVR 3.7 MMOL/L (3.5-5.1); VBG Base Excess 0.9 MEQ/L (0-4); VBG HCO3 22.6 MEQ/L (24-28); VBG Oxygen Saturation 84.5 %; VBG PCO2 25.9 MMHG (41-51); VBG PH 7.559; VBG PO2 43.6 MMHG (17-40)
[2020-07-18] MEDS ORDERED: THROMBIN TOPICAL (RECOMBINANT) 5,000 UNIT VIAL TOP ONE (10:26)
[2020-07-18 10:48] LABS: Hematocrit Heart Surgery 27.5 PERCENT (42-52); Hemoglobin Heart Surgery 8.9 G/DL (14.0-18.0); PCO2 Patient Temp Venous 29.2 MM HG; PH Patient Temp Venous 7.536; PO2 Patient Temp Venous 34.2 MM HG; Potassium Heart/CVR 3.8 MMOL/L (3.5-5.1); VBG Base Excess 2.6 MEQ/L (0-4); VBG HCO3 26.4 MEQ/L (24-28); VBG Oxygen Saturation 72.8 %; VBG PCO2 29.2 MMHG (41-51); VBG PH 7.536; VBG PO2 34.2 MMHG (17-40)
[2020-07-18 11:10] LABS: ABG Base Excess -0.9 MMOL/L (-2.5-2.5); ABG HCO3 23.7 MMOL/L (20-26); ABG Oxygen Saturation 99.8 % (95-100); ABG PCO2 34.4 MM HG (35-48); ABG PH 7.432 (7.35-7.45); Glucose Heart Surgery 212 MG/DL (74-106); Hematocrit Heart Surgery 29.1 PERCENT (42-52); Hemoglobin Heart Surgery 9.4 G/DL (14.0-18.0); Ionized Calcium Arterial 1.25 MMOL/L (1.21-1.46); PCO2 Patient Temp Arterial 34.4 MMHG; PH Patient Temp Arterial 7.432; Patient Temperature 37 CELCIUS; Potassium Heart/CVR 3.9 MMOL/L (3.5-5.1); Sodium Heart/CVR 135 MMOL/L (135-145)
[2020-07-18] MEDS ORDERED: ALBUMIN 25% 25 GM/100 ML VIAL IV ONE (11:10)
[2020-07-18] MEDS ORDERED: FUROSEMIDE 20 MG/2 ML VIAL ONE (11:11)
[2020-07-18] MEDS ORDERED: MANNITOL 100 GM/500 ML BAG IV ONE (11:11)
[2020-07-18] MEDS ORDERED: HEPARIN 10,000 UNIT/10 ML VIAL ONE (11:11)
[2020-07-18] MEDS ORDERED: methylPREDNISolone SOD SUC 1,000 MG/8 ML VIAL ONE (11:11)
[2020-07-18] MEDS ORDERED: DEXTROSE 5% KCL 20 MEQ 20 MEQ/1,000 ML BAG IV ONE (11:11)
[2020-07-18] MEDS ORDERED: MAGNESIUM SULFATE 5 GM/10 ML VIAL IV ONE (11:11)
[2020-07-18] MEDS ORDERED: PROTAMINE SULFATE 50 MG/5 ML VIAL IV ONE (11:11)
[2020-07-18] MEDS ORDERED: PROTAMINE SULFATE 250 MG/25 ML VIAL IV ONE (11:11)
[2020-07-18] MEDS ORDERED: CALCIUM CHLORIDE 1,000 MG/10 ML VIAL IV ONE (11:18)
[2020-07-18] MEDS ORDERED: SEVOFLURANE 1 UNIT/15 MINUTE INH ONE (11:18)
[2020-07-18] MEDS ORDERED: MAGNESIUM SULF RIDER 4 GM in PREMIX 1 EACH IV PRN (11:26)
[2020-07-18] MEDS ORDERED: ONDANSETRON 4 MG/2 ML VIAL IV PRN (11:26)
[2020-07-18] MEDS ORDERED: DEXTROSE 50% 25 GM/50 ML VIAL IV PRN ×2 (11:26)
[2020-07-18] MEDS ORDERED: PHENYLEPHRINE DRIP 40 MG/250 ML PREMIX IV PRN (11:26)
[2020-07-18] MEDS ORDERED: MIDAZOLAM 2 MG/2 ML VIAL IV PRN (11:26)
[2020-07-18] MEDS ORDERED: MORPHINE 10 MG/1 ML VIAL IV PRN (11:26)
[2020-07-18] MEDS ORDERED: INSULIN REGULAR 100 UNIT/ML IV ONE (11:26)
[2020-07-18] MEDS ORDERED: VECURONIUM 10 MG VIAL IV PRN ×2 (11:26)
[2020-07-18] MEDS ORDERED: ACETAMINOPHEN 650 MG SUPP RECTAL PRN (11:26)
[2020-07-18] MEDS ORDERED: MAGNESIUM SULF RIDER 2 GM in PREMIX 1 EACH IV PRN (11:26)
[2020-07-18] MEDS ORDERED: LACTATED RINGERS 250 ML IV PRN (11:26)
[2020-07-18] MEDS ORDERED: CALCIUM CHLORIDE 1,000 MG/10 ML SYRINGE IV PRN (11:26)
[2020-07-18] MEDS ORDERED: MORPHINE 4 MG/1 ML VIAL IV PRN (11:26)
[2020-07-18] MEDS ORDERED: MIDAZOLAM 10 MG/2 ML VIAL IV PRN (11:26)
[2020-07-18] MEDS ORDERED: CHLORHEXIDINE 4% SOLN 118 ML BOTTLE TOP PRN (11:26)
[2020-07-18] MEDS ORDERED: POTASSIUM CHLORIDE RIDER 10 MEQ in PREMIX 1 EACH IV PRN (11:26)
[2020-07-18] MEDS ORDERED: POTASSIUM CHLORIDE RIDER 20 MEQ in PREMIX 1 EACH IV PRN (11:26)
[2020-07-18] MEDS ORDERED: NITROPRUSSIDE 100 MG in DEXTROSE 5% 250 ML IV PRN (11:26)
[2020-07-18] MEDS ORDERED: INSULIN REGULAR 100 UNIT/ML IV PRN (11:26)
[2020-07-18] MEDS ORDERED: DOBUTamine 500 MG/250 ML PREMIX IV PRN (11:35)
[2020-07-18] MEDS: SODIUM CHLORIDE 0.45% 1,000 ML IV SCH ×2 (11:44)
[2020-07-18 12:33] LABS: ABG Base Excess -1.2 MMOL/L (-2.5-2.5); ABG HCO3 21.7 MMOL/L (20-26); ABG Oxygen Saturation 97.7 % (95-100); ABG PCO2 29.9 MM HG (35-48); ABG PH 7.478 (7.35-7.45); ABG TCO2 22.6 MMOL/L (23-27); Glucose Heart Surgery 168 MG/DL (74-106); Hemoglobin Heart Surgery 10.5 G/DL (14.0-18.0); Potassium Heart/CVR 3.7 MMOL/L (3.5-5.1)
[2020-07-18 12:36] LABS: Basophils # 0.1 10*3/uL (0.0-0.2); Basophils % 0.4 % (0.0-0.8); Eosinophils # 0.2 10*3/uL (0.0-0.87); Eosinophils % 0.9 % (0.00-10.9); Hematocrit 28.8 VOL% (42.0-52.0); Immature Granulocytes % 0.8 %; Immature Granulocytes Absolute 0.14 #; Lymphocytes # 0.8 10*3/uL (1.4-4.0); Lymphocytes % 4.9 % (21.2-54.2); Mean Corpuscular HGB Conc 34.7 GM/DL (32-36); Mean Corpuscular Volume 88.9 FL (87-102); Mean Platelet Volume 10.5 FL (9.6-12.0); Monocytes % 4.4 % (1.7-12.7); Neutrophils % 88.6 % (38.7-73.9); Platelet Count 140 T/CUMM (130-400); Red Blood Count 3.24 MC/CUMM (3.8-5.5); Red Cell Distribution Width 13.9 % (9.3-17.3); White Blood Count 16.7 T/CUMM (4-12)
[2020-07-18] MEDS ORDERED: SODIUM CHLORIDE 0.9% 250 ML IV PRN (12:44)
[2020-07-18 12:56] LABS: INR 1.2; Partial Thromboplastin Time 31.6 SECS (23.9-33.8)
[2020-07-18] MEDS ORDERED: NITROGLYCERIN DRIP 50 MG/250 ML BOTTLE IV PRN (13:01)
[2020-07-18 13:03] LABS: CKMB % 7.1 %
[2020-07-18 13:07] LABS: Troponin I 11.8 NG/ML (0.00-0.045)
[2020-07-18 13:35] LABS: Albumin 2.8 G/DL (3.4-5.0); Bilirubin,Total 1.3 MG/DL (0.2-1.0); Calcium 8.2 MG/DL (8.5-10.1); Osmolality,Calculated 280.8 MOS/KG (273-304)
[2020-07-18 13:55] LABS: Band Neutrophils 7 % (0-10); Eosinophils 2 % (0-10); Lymphocytes 3 % (20-55); Segmented Neutrophils 84 % (50-85); Total Cells Counted 100
[2020-07-18] MEDS: INSULIN REGULAR 100 UNIT/ML SUBCUT SCH (13:55)
[2020-07-18] MEDS: SODIUM HYPOCHLORITE 0.25% IRRIG 473 ML BOTTLE TOP SCH (13:55)
[2020-07-18 13:56] LABS: Anisocytosis Slight; Macrocytosis Slight; Microcytosis Slight; Platelet Estimate Adequate
[2020-07-18] MEDS: carvediloL 12.5 MG TABLET PO SCH (13:56)
[2020-07-18] MEDS: ASPIRIN EC 325 MG TABLET PO SCH (13:56)
[2020-07-18] MEDS: PANTOPRAZOLE 40 MG TABLET PO SCH (13:56)
[2020-07-18] MEDS: CHLORHEXIDINE 0.12% ORAL RINSE 60 ML BOTTLE SWISH/SPIT SCH ×2 (13:56→22:20)
[2020-07-18 14:08] LABS: ABG Base Excess -1.4 MMOL/L (-2.5-2.5); ABG HCO3 23.3 MMOL/L (20-26); ABG PCO2 28.4 MM HG (35-48); ABG PH 7.481 (7.35-7.45); ABG TCO2 19.1 MMOL/L (23-27); Glucose Heart Surgery 199 MG/DL (74-106); Hematocrit Heart Surgery 32.1 PERCENT (42-52); Hemoglobin Heart Surgery 10.4 G/DL (14.0-18.0)
[2020-07-18] MEDS: INSULIN REGULAR DRIP 100 ML IV SCH (14:12)
[2020-07-18 16:12] LABS: ABG Base Excess -1.8 MMOL/L (-2.5-2.5); ABG HCO3 22.9 MMOL/L (20-26); ABG Oxygen Saturation 98.7 % (95-100); ABG PCO2 32.3 MM HG (35-48); ABG PH 7.436 (7.35-7.45); ABG TCO2 19.7 MMOL/L (23-27); Glucose Heart Surgery 198 MG/DL (74-106); Hematocrit Heart Surgery 30.6 PERCENT (42-52); Hemoglobin Heart Surgery 9.9 G/DL (14.0-18.0); Potassium Heart/CVR 3.9 MMOL/L (3.5-5.1)
[2020-07-18] MEDS: ALBUMIN 5% 12.5 GM in PREMIX 1 EACH IV PRN ×2 (16:30→16:36)
[2020-07-18] MEDS: CEFUROXIME INJ 1,500 MG in SYRINGE 1 EACH IV SCH (18:39)
[2020-07-18] MEDS ORDERED: CEFUROXIME INJ 1,500 MG in SYRINGE 1 EACH IV SCH (19:17)
[2020-07-18 19:40] LABS: ABG Base Excess -2.5 MMOL/L (-2.5-2.5); ABG HCO3 22.3 MMOL/L (20-26); ABG Oxygen Saturation 99.3 % (95-100); ABG PCO2 31.9 MM HG (35-48); ABG PH 7.423 (7.35-7.45); ABG TCO2 17.8 MMOL/L (23-27); Glucose Heart Surgery 117 MG/DL (74-106); Hematocrit Heart Surgery 44.5 PERCENT (42-52); Hemoglobin Heart Surgery 14.5 G/DL (14.0-18.0); Potassium Heart/CVR 3.6 MMOL/L (3.5-5.1)
[2020-07-18 22:22] LABS: CKMB % 6.5 %
[2020-07-18 22:32] LABS: Troponin I 13.8 NG/ML (0.00-0.045)
[2020-07-18] MEDS: DEXMEDETOMIDINE 200 MCG in SODIUM CHLORIDE 0.9% 48 ML IV PRN (22:42)
[2020-07-19 01:25] LABS: ABG Base Excess -3.9 MMOL/L (-2.5-2.5); ABG HCO3 21.2 MMOL/L (20-26); ABG Oxygen Saturation 98.8 % (95-100); ABG PCO2 30.8 MM HG (35-48); ABG PH 7.419 (7.35-7.45); ABG TCO2 18.5 MMOL/L (23-27); Glucose Heart Surgery 162 MG/DL (74-106); Hematocrit Heart Surgery 25.3 PERCENT (42-52); Hemoglobin Heart Surgery 8.1 G/DL (14.0-18.0); Potassium Heart/CVR 3.9 MMOL/L (3.5-5.1)
[2020-07-19] MEDS: DEXMEDETOMIDINE 200 MCG in SODIUM CHLORIDE 0.9% 48 ML IV PRN ×2 (03:52→08:26)
[2020-07-19 04:26] LABS: ABG Base Excess -1.7 MMOL/L (-2.5-2.5); ABG Oxygen Saturation 97.2 % (95-100); ABG PCO2 23.8 MM HG (35-48); ABG PH 7.535 (7.35-7.45); ABG TCO2 18.7 MMOL/L (23-27); Glucose Heart Surgery 149 MG/DL (74-106); Hematocrit Heart Surgery 25.1 PERCENT (42-52); Hemoglobin Heart Surgery 8.1 G/DL (14.0-18.0); Potassium Heart/CVR 3.9 MMOL/L (3.5-5.1)
[2020-07-19 04:30] LABS: Basophils % 0.1 % (0.0-0.8); Hematocrit 22.9 VOL% (42.0-52.0); Hemoglobin 8.1 GM/DL (14.0-18.0); Immature Granulocytes % 0.5 %; Immature Granulocytes Absolute 0.07 #; Lymphocytes # 0.6 10*3/uL (1.4-4.0); Lymphocytes % 4.8 % (21.2-54.2); Mean Corpuscular HGB Conc 35.4 GM/DL (32-36); Mean Corpuscular Volume 88.1 FL (87-102); Mean Platelet Volume 11.1 FL (9.6-12.0); Monocytes % 5.3 % (1.7-12.7); Neutrophils % 89.3 % (38.7-73.9); Platelet Count 124 T/CUMM (130-400); Red Cell Distribution Width 14.6 % (9.3-17.3); White Blood Count 13.3 T/CUMM (4-12)
[2020-07-19 04:49] LABS: Hypochromasia 1+; Lymphocytes 7 % (20-55); Platelet Estimate Normal; Segmented Neutrophils 90 % (50-85); Total Cells Counted 100
[2020-07-19] MEDS ORDERED: SODIUM CHLORIDE 0.9% 1,000 ML IV PRN (04:49)
[2020-07-19 04:50] LABS: Microcytosis Slight; Ovalocytes Slight
[2020-07-19 05:06] LABS: CKMB % 8.1 %
[2020-07-19 05:11] LABS: Troponin I 17.5 NG/ML (0.00-0.045)
[2020-07-19 05:16] LABS: Albumin 2.9 G/DL (3.4-5.0); Bilirubin,Direct 0.38 MG/DL (0.0-0.20); Bilirubin,Total 0.7 MG/DL (0.2-1.0); Calcium 7.6 MG/DL (8.5-10.1); Osmolality,Calculated 284.7 MOS/KG (273-304); Total Protein 5.8 G/DL (6.4-8.3)
[2020-07-19 05:23] LABS: ABG Base Excess -2.4 MMOL/L (-2.5-2.5); ABG HCO3 22.5 MMOL/L (20-26); ABG Oxygen Saturation 99.7 % (95-100); ABG PCO2 34.1 MM HG (35-48); ABG PH 7.412 (7.35-7.45); ABG TCO2 20.2 MMOL/L (23-27); Glucose Heart Surgery 132 MG/DL (74-106); Hematocrit Heart Surgery 26.2 PERCENT (42-52); Hemoglobin Heart Surgery 8.4 G/DL (14.0-18.0); Potassium Heart/CVR 3.9 MMOL/L (3.5-5.1)
[2020-07-19] MEDS: CEFUROXIME INJ 1,500 MG in SYRINGE 1 EACH IV SCH ×2 (06:27→17:31)
[2020-07-19 06:43] LABS: ABG Base Excess -2.7 MMOL/L (-2.5-2.5); ABG HCO3 22.1 MMOL/L (20-26); ABG Oxygen Saturation 98.1 % (95-100); ABG PCO2 33.8 MM HG (35-48); ABG PH 7.409 (7.35-7.45); ABG TCO2 19.9 MMOL/L (23-27); Glucose Heart Surgery 122 MG/DL (74-106); Hematocrit Heart Surgery 25.7 PERCENT (42-52); Hemoglobin Heart Surgery 8.3 G/DL (14.0-18.0); Potassium Heart/CVR 3.8 MMOL/L (3.5-5.1)
[2020-07-19] MEDS: CHLORHEXIDINE 0.12% ORAL RINSE 60 ML BOTTLE SWISH/SPIT SCH ×2 (08:27→20:49)
[2020-07-19] MEDS: SODIUM HYPOCHLORITE 0.25% IRRIG 473 ML BOTTLE TOP SCH (08:27)
[2020-07-19] MEDS ORDERED: ASPIRIN CHEW 81 MG TABLET PO SCH (09:09)
[2020-07-19] MEDS ORDERED: PANTOPRAZOLE 40 MG VIAL IV SCH (11:00)
[2020-07-19] MEDS: SODIUM CHLORIDE 0.45% 1,000 ML IV SCH ×2 (12:45→12:46)
[2020-07-19] MEDS: INSULIN REGULAR DRIP 100 ML IV SCH (12:46)
[2020-07-19 15:28] LABS: Hematocrit 34.6 VOL% (42.0-52.0); Hemoglobin 12.3 GM/DL (14.0-18.0)
[2020-07-19 15:45] LABS: CKMB % 10.9 %
[2020-07-19 15:51] LABS: Troponin I 30.4 NG/ML (0.00-0.045)
[2020-07-19] MEDS: INSULIN REGULAR 100 UNIT/ML SUBCUT SCH ×2 (17:12→20:44)
[2020-07-19] MEDS: KETOROLAC 30 MG/1 ML VIAL IV PRN (17:28)
[2020-07-19] MEDS: ROSUVASTATIN 20 MG TABLET PO SCH (20:47)
[2020-07-20 04:23] LABS: Basophils % 0.3 % (0.0-0.8); Eosinophils # 0.1 10*3/uL (0.0-0.87); Eosinophils % 0.8 % (0.00-10.9); Hematocrit 32.6 VOL% (42.0-52.0); Hemoglobin 11.2 GM/DL (14.0-18.0); Immature Granulocytes % 0.6 %; Immature Granulocytes Absolute 0.07 #; Lymphocytes # 1.1 10*3/uL (1.4-4.0); Lymphocytes % 8.9 % (21.2-54.2); Mean Corpuscular HGB Conc 34.4 GM/DL (32-36); Mean Corpuscular Volume 88.1 FL (87-102); Mean Platelet Volume 11.5 FL (9.6-12.0); Monocytes % 8.9 % (1.7-12.7); Neutrophils % 80.5 % (38.7-73.9); Platelet Count 110 T/CUMM (130-400); Red Cell Distribution Width 15.1 % (9.3-17.3)
[2020-07-20 04:39] LABS: Albumin 2.7 G/DL (3.4-5.0); Bilirubin,Direct 0.4 MG/DL (0.0-0.20); Calcium 8.2 MG/DL (8.5-10.1); Osmolality,Calculated 274.2 MOS/KG (273-304); Total Protein 6.4 G/DL (6.4-8.3)
[2020-07-20 04:41] LABS: Hypochromasia 1+
[2020-07-20 04:42] LABS: Microcytosis Slight; Platelet Estimate Decreased
[2020-07-20 04:57] LABS: CKMB % 8.8 %
[2020-07-20 05:04] LABS: Troponin I 25.9 NG/ML (0.00-0.045)
[2020-07-20 05:31] LABS: Calcium 8.1 MG/DL (8.5-10.1); Osmolality,Calculated 271.4 MOS/KG (273-304)
[2020-07-20] MEDS: KETOROLAC 30 MG/1 ML VIAL IV PRN (06:14)
[2020-07-20] MEDS: INSULIN REGULAR 100 UNIT/ML SUBCUT SCH (08:46)
[2020-07-20] MEDS ORDERED: ACETAMINOPHEN 325 MG TABLET PO PRN (08:57)
[2020-07-20] MEDS ORDERED: MAGNESIUM HYDROXIDE SUSP 30 ML UDCUP PO PRN (08:57)
[2020-07-20] MEDS ORDERED: ZALEPLON 5 MG CAPSULE PO PRN (08:57)
[2020-07-20] MEDS ORDERED: GLUCAGON 1 MG VIAL IM PRN (08:57)
[2020-07-20] MEDS ORDERED: DEXTROSE 50% 25 GM/50 ML VIAL IV PRN (08:57)
[2020-07-20] MEDS ORDERED: MAGNESIUM SULF RIDER 4 GM in PREMIX 1 EACH IV PRN (08:57)
[2020-07-20] MEDS ORDERED: MAGNESIUM SULF RIDER 2 GM in PREMIX 1 EACH IV PRN (08:57)
[2020-07-20] MEDS ORDERED: ALUMINUM/MAGNES/SIMETH MAX STR 30 ML UDCUP PO PRN (08:57)
[2020-07-20] MEDS ORDERED: PANTOPRAZOLE 40 MG TABLET PO SCH ×2 (09:00→09:45)
[2020-07-20] MEDS: ASPIRIN EC 81 MG TABLET PO SCH (09:52)
[2020-07-20] MEDS: ASCORBIC ACID 500 MG TABLET PO SCH (09:52)
[2020-07-20] MEDS: DOCUSATE SODIUM 100 MG CAPSULE PO SCH (09:52)
[2020-07-20] MEDS: CALCIUM ACETATE 667 MG CAPSULE PO SCH ×3 (09:53→17:04)
[2020-07-20] MEDS: PANTOPRAZOLE 40 MG TABLET PO SCH ×2 (09:53→22:01)
[2020-07-20] MEDS: FERROUS SULFATE 325 MG TABLET PO SCH (09:54)
[2020-07-20] MEDS: CHLORHEXIDINE 0.12% ORAL RINSE 60 ML BOTTLE SWISH/SPIT SCH ×2 (09:54→22:03)
[2020-07-20] MEDS: SODIUM HYPOCHLORITE 0.25% IRRIG 473 ML BOTTLE TOP SCH (09:54)
[2020-07-20] MEDS: oxyCODONE/ACETAMINOPHEN 5-325 MG TABLET PO PRN (10:46)
[2020-07-20] MEDS: ALBUTEROL/IPRATROPIUM 3 ML NEB RESP TX SCH ×2 (13:22→18:51)
[2020-07-20] MEDS: GABAPENTIN 300 MG CAPSULE PO SCH ×2 (17:04→22:01)
[2020-07-20] MEDS: INSULIN LISPRO 100 UNIT/ML SUBCUT SCH ×2 (17:04→22:05)
[2020-07-20] MEDS: ROSUVASTATIN 20 MG TABLET PO SCH (22:01)
[2020-07-21] MEDS: ALBUTEROL/IPRATROPIUM 3 ML NEB RESP TX SCH ×4 (01:30→18:41)
[2020-07-21 05:47] LABS: Basophils % 0.4 % (0.0-0.8); Eosinophils # 0.3 10*3/uL (0.0-0.87); Eosinophils % 3.1 % (0.00-10.9); Hematocrit 31.3 VOL% (42.0-52.0); Hemoglobin 10.5 GM/DL (14.0-18.0); Immature Granulocytes % 0.8 %; Immature Granulocytes Absolute 0.07 #; Lymphocytes # 1.4 10*3/uL (1.4-4.0); Lymphocytes % 14.6 % (21.2-54.2); Mean Corpuscular HGB Conc 33.5 GM/DL (32-36); Mean Corpuscular Volume 91.3 FL (87-102); Mean Platelet Volume 11.5 FL (9.6-12.0); Monocytes % 9.5 % (1.7-12.7); Neutrophils % 71.6 % (38.7-73.9); Platelet Count 111 T/CUMM (130-400); Red Blood Count 3.43 MC/CUMM (3.8-5.5); Red Cell Distribution Width 15.5 % (9.3-17.3); White Blood Count 9.3 T/CUMM (4-12)
[2020-07-21] MEDS ORDERED: FUROSEMIDE 40 MG/4 ML VIAL IV ONE (06:00)
[2020-07-21 06:04] LABS: Hypochromasia 1+; Microcytosis 1+
[2020-07-21 06:05] LABS: Platelet Estimate Decreased
[2020-07-21 06:09] LABS: Albumin 2.5 G/DL (3.4-5.0); Bilirubin,Direct 0.24 MG/DL (0.0-0.20); Bilirubin,Total 0.6 MG/DL (0.2-1.0); Total Protein 6.3 G/DL (6.4-8.3)
[2020-07-21 06:14] LABS: Albumin 2.6 G/DL (3.4-5.0); Bilirubin,Direct 0.24 MG/DL (0.0-0.20); Bilirubin,Indirect 1.1 MG/DL (0.0-1.0); Bilirubin,Total 1.3 MG/DL (0.2-1.0); CKMB % 4.1 %; Total Protein 6.4 G/DL (6.4-8.3)
[2020-07-21 06:16] LABS: Troponin I 21.8 NG/ML (0.00-0.045)
[2020-07-21] MEDS: INSULIN LISPRO 100 UNIT/ML SUBCUT SCH ×4 (07:40→21:56)
[2020-07-21] MEDS: CALCIUM ACETATE 667 MG CAPSULE PO SCH ×3 (08:00→16:50)
[2020-07-21] MEDS: oxyCODONE/ACETAMINOPHEN 5-325 MG TABLET PO PRN ×2 (12:20→16:11)
[2020-07-21] MEDS: ASCORBIC ACID 500 MG TABLET PO SCH (12:21)
[2020-07-21] MEDS: ASPIRIN EC 81 MG TABLET PO SCH (12:22)
[2020-07-21] MEDS: GABAPENTIN 300 MG CAPSULE PO SCH ×3 (12:22→21:56)
[2020-07-21] MEDS: PANTOPRAZOLE 40 MG TABLET PO SCH ×2 (12:22→21:56)
[2020-07-21] MEDS: FERROUS SULFATE 325 MG TABLET PO SCH (12:22)
[2020-07-21] MEDS: DOCUSATE SODIUM 100 MG CAPSULE PO SCH (12:22)
[2020-07-21] MEDS: CHLORHEXIDINE 0.12% ORAL RINSE 60 ML BOTTLE SWISH/SPIT SCH ×2 (12:23→22:01)
[2020-07-21] MEDS: SODIUM HYPOCHLORITE 0.25% IRRIG 473 ML BOTTLE TOP SCH (12:23)
[2020-07-21] MEDS: ROSUVASTATIN 20 MG TABLET PO SCH (21:56)
[2020-07-22] MEDS: ALBUTEROL/IPRATROPIUM 3 ML NEB RESP TX SCH ×4 (00:45→18:56)
[2020-07-22 05:34] LABS: Basophils % 0.4 % (0.0-0.8); Eosinophils # 0.3 10*3/uL (0.0-0.87); Eosinophils % 3.1 % (0.00-10.9); Hematocrit 31.2 VOL% (42.0-52.0); Hemoglobin 10.6 GM/DL (14.0-18.0); Immature Granulocytes % 0.8 %; Immature Granulocytes Absolute 0.07 #; Lymphocytes # 0.9 10*3/uL (1.4-4.0); Lymphocytes % 10.8 % (21.2-54.2); Mean Platelet Volume 12.7 FL (9.6-12.0); Monocytes % 8.8 % (1.7-12.7); Neutrophils % 76.1 % (38.7-73.9); Platelet Count 112 T/CUMM (130-400); Red Blood Count 3.43 MC/CUMM (3.8-5.5); Red Cell Distribution Width 15.2 % (9.3-17.3); White Blood Count 8.3 T/CUMM (4-12)
[2020-07-22 06:00] LABS: Albumin 2.4 G/DL (3.4-5.0); Bilirubin,Direct 0.23 MG/DL (0.0-0.20); Bilirubin,Indirect 0.4 MG/DL (0.0-1.0); Bilirubin,Total 0.6 MG/DL (0.2-1.0); CKMB % 3.1 %; Calcium 7.9 MG/DL (8.5-10.1); Osmolality,Calculated 284.8 MOS/KG (273-304); Total Protein 6.4 G/DL (6.4-8.3); Troponin I 18.2 NG/ML (0.00-0.045)
[2020-07-22 06:37] LABS: Calcium 7.9 MG/DL (8.5-10.1); Osmolality,Calculated 283.8 MOS/KG (273-304)
[2020-07-22] MEDS: INSULIN LISPRO 100 UNIT/ML SUBCUT SCH ×4 (07:33→22:34)
[2020-07-22] MEDS ORDERED: POTASSIUM CHLORIDE 20 MEQ TABLET PO ONE (07:46)
[2020-07-22] MEDS ORDERED: LIDOCAINE 1%/EPI INJ 20 ML VIAL ONE (08:42)
[2020-07-22] MEDS ORDERED: LIDOCAINE 2% 5 ML VIAL ONE (08:53)
[2020-07-22] MEDS ORDERED: propofoL 200 MG/20 ML VIAL IV ONE (08:53)
[2020-07-22] MEDS ORDERED: fentaNYL 100 MCG/2 ML VIAL ONE (08:53)
[2020-07-22] MEDS ORDERED: VANCOMYCIN INJ 1,000 MG in SODIUM CHLORIDE 0.9% 250 ML IV ONE (09:05)
[2020-07-22] MEDS ORDERED: ETOMIDATE 40 MG/20 ML VIAL IV ONE (09:07)
[2020-07-22] MEDS ORDERED: SEVOFLURANE 1 UNIT/15 MINUTE INH ONE (09:15)
[2020-07-22] MEDS ORDERED: ONDANSETRON 4 MG/2 ML VIAL ONE (09:15)
[2020-07-22] MEDS ORDERED: PHENYLEPHRINE 1 MG/10 ML SYRINGE IV ONE ×2 (09:24→09:58)
[2020-07-22] MEDS ORDERED: VANCOMYCIN 1,000 MG VIAL ONE (09:27)
[2020-07-22] MEDS ORDERED: SODIUM CHLORIDE 0.9% 250 ML IV ONE (09:33)
[2020-07-22] MEDS ORDERED: ePHEDrine 50 MG/ML VIAL ONE (09:34)
[2020-07-22] MEDS ORDERED: KETOROLAC 30 MG/1 ML VIAL ONE (09:40)
[2020-07-22] MEDS ORDERED: GLUCAGON 1 MG VIAL IM PRN (10:12)
[2020-07-22] MEDS ORDERED: DEXTROSE 50% 25 GM/50 ML VIAL IV PRN (10:12)
[2020-07-22] MEDS ORDERED: ONDANSETRON 4 MG/2 ML VIAL IV PRN (10:38)
[2020-07-22] MEDS: HYDROmorphone 2 MG/1 ML VIAL IV PRN ×4 (10:40→11:00)
[2020-07-22] MEDS ORDERED: HYDROmorphone 2 MG/1 ML VIAL ONE (10:40)
[2020-07-22] MEDS: CALCIUM ACETATE 667 MG CAPSULE PO SCH ×3 (11:24→16:24)
[2020-07-22] MEDS: ASPIRIN EC 81 MG TABLET PO SCH (11:45)
[2020-07-22] MEDS: ASCORBIC ACID 500 MG TABLET PO SCH (11:46)
[2020-07-22] MEDS: PANTOPRAZOLE 40 MG TABLET PO SCH ×2 (11:48→21:28)
[2020-07-22] MEDS: CHLORHEXIDINE 0.12% ORAL RINSE 60 ML BOTTLE SWISH/SPIT SCH ×2 (11:48→21:31)
[2020-07-22] MEDS: FERROUS SULFATE 325 MG TABLET PO SCH (11:49)
[2020-07-22] MEDS: DOCUSATE SODIUM 100 MG CAPSULE PO SCH (11:49)
[2020-07-22] MEDS: GABAPENTIN 300 MG CAPSULE PO SCH ×3 (11:49→21:28)
[2020-07-22] MEDS: SODIUM HYPOCHLORITE 0.25% IRRIG 473 ML BOTTLE TOP SCH (11:57)
[2020-07-22] MEDS: ROSUVASTATIN 20 MG TABLET PO SCH (21:27)
[2020-07-23] MEDS: ALBUTEROL/IPRATROPIUM 3 ML NEB RESP TX SCH ×4 (00:08→19:46)
[2020-07-23] MEDS: ONDANSETRON 4 MG/2 ML VIAL IV PRN ×2 (02:32→23:22)
[2020-07-23] MEDS: oxyCODONE/ACETAMINOPHEN 5-325 MG TABLET PO PRN ×3 (05:20→23:24)
[2020-07-23 06:39] LABS: Basophils % 0.3 % (0.0-0.8); Eosinophils # 0.4 10*3/uL (0.0-0.87); Eosinophils % 3.6 % (0.00-10.9); Hematocrit 30.7 VOL% (42.0-52.0); Hemoglobin 10.2 GM/DL (14.0-18.0); Immature Granulocytes % 0.8 %; Immature Granulocytes Absolute 0.09 #; Lymphocytes % 9.1 % (21.2-54.2); Mean Corpuscular HGB Conc 33.2 GM/DL (32-36); Mean Platelet Volume 11.5 FL (9.6-12.0); Monocytes % 7.4 % (1.7-12.7); Neutrophils % 78.8 % (38.7-73.9); Red Cell Distribution Width 15.1 % (9.3-17.3)
[2020-07-23 06:40] LABS: Platelet Count 137 T/CUMM (130-400); White Blood Count 10.9 T/CUMM (4-12)
[2020-07-23 06:49] LABS: Calcium 8.2 MG/DL (8.5-10.1); Osmolality,Calculated 284.8 MOS/KG (273-304)
[2020-07-23 08:08] LABS: Anisocytosis Slight; Platelet Estimate Adequate
[2020-07-23 08:09] LABS: Macrocytosis Slight
[2020-07-23] MEDS: INSULIN LISPRO 100 UNIT/ML SUBCUT SCH ×4 (09:15→23:14)
[2020-07-23] MEDS ORDERED: EPOETIN ALFA-EPBX 2,000 UNIT/ML VIAL IV SCH (10:30)
[2020-07-23] MEDS: PANTOPRAZOLE 40 MG TABLET PO SCH ×2 (12:07→23:10)
[2020-07-23] MEDS: CALCIUM ACETATE 667 MG CAPSULE PO SCH ×3 (12:07→16:40)
[2020-07-23] MEDS: FERROUS SULFATE 325 MG TABLET PO SCH (12:07)
[2020-07-23] MEDS: ASPIRIN EC 81 MG TABLET PO SCH (12:07)
[2020-07-23] MEDS: GABAPENTIN 300 MG CAPSULE PO SCH ×3 (12:07→23:10)
[2020-07-23] MEDS: ASCORBIC ACID 500 MG TABLET PO SCH (12:07)
[2020-07-23] MEDS: CHLORHEXIDINE 0.12% ORAL RINSE 60 ML BOTTLE SWISH/SPIT SCH ×2 (12:08→23:25)
[2020-07-23] MEDS: SODIUM HYPOCHLORITE 0.25% IRRIG 473 ML BOTTLE TOP SCH (12:08)
[2020-07-23] MEDS ORDERED: VANCOMYCIN INJ 1,000 MG in SODIUM CHLORIDE 0.9% 250 ML IV ONE (12:13)
[2020-07-23] MEDS: DOCUSATE SODIUM 100 MG CAPSULE PO SCH (12:40)
[2020-07-23] MEDS: ROSUVASTATIN 20 MG TABLET PO SCH (23:10)
[2020-07-24] MEDS: ALBUTEROL/IPRATROPIUM 3 ML NEB RESP TX SCH ×4 (01:03→19:13)
[2020-07-24 05:40] LABS: Basophils % 0.3 % (0.0-0.8); Eosinophils # 0.4 10*3/uL (0.0-0.87); Eosinophils % 3.3 % (0.00-10.9); Hematocrit 31.6 VOL% (42.0-52.0); Hemoglobin 10.3 GM/DL (14.0-18.0); Immature Granulocytes % 1.1 %; Immature Granulocytes Absolute 0.12 #; Lymphocytes # 1.2 10*3/uL (1.4-4.0); Lymphocytes % 11.2 % (21.2-54.2); Mean Corpuscular HGB Conc 32.6 GM/DL (32-36); Mean Corpuscular Volume 92.4 FL (87-102); Mean Platelet Volume 11.3 FL (9.6-12.0); Monocytes % 10.1 % (1.7-12.7); Platelet Count 146 T/CUMM (130-400); Red Blood Count 3.42 MC/CUMM (3.8-5.5); Red Cell Distribution Width 14.6 % (9.3-17.3); White Blood Count 10.5 T/CUMM (4-12)
[2020-07-24 06:03] LABS: Alanine Aminotransferase 16 U/L (16-61); Albumin 2.4 G/DL (3.4-5.0); Alkaline Phosphatase 116 U/L (45-117); Aspartate Amino Transferase 32 U/L (0-37); Bilirubin,Indirect 0.7 MG/DL (0.0-1.0); Blood Urea Nitrogen 28 MG/DL (7-18); Calcium 8.1 MG/DL (8.5-10.1); Estimated Glom Filtration Rate 11 ML/MIN; Glucose 95 MG/DL (74-106); Total Protein 6.7 G/DL (6.4-8.3)
[2020-07-24] MEDS: ASPIRIN EC 81 MG TABLET PO SCH (08:57)
[2020-07-24] MEDS: CALCIUM ACETATE 667 MG CAPSULE PO SCH ×3 (08:57→16:04)
[2020-07-24] MEDS: ASCORBIC ACID 500 MG TABLET PO SCH (08:58)
[2020-07-24] MEDS: PANTOPRAZOLE 40 MG TABLET PO SCH ×2 (08:58→22:27)
[2020-07-24] MEDS: GABAPENTIN 300 MG CAPSULE PO SCH ×3 (08:58→22:27)
[2020-07-24] MEDS: POTASSIUM CHLORIDE 20 MEQ TABLET PO PRN ×2 (08:58→18:47)
[2020-07-24] MEDS: FERROUS SULFATE 325 MG TABLET PO SCH (08:58)
[2020-07-24] MEDS: DOCUSATE SODIUM 100 MG CAPSULE PO SCH (09:19)
[2020-07-24] MEDS: INSULIN LISPRO 100 UNIT/ML SUBCUT SCH ×3 (09:19→17:17)
[2020-07-24] MEDS: VENLAFAXINE 37.5 MG TABLET PO SCH (09:52)
[2020-07-24] MEDS: oxyCODONE/ACETAMINOPHEN 5-325 MG TABLET PO PRN (09:52)
[2020-07-24] MEDS: CHLORHEXIDINE 0.12% ORAL RINSE 60 ML BOTTLE SWISH/SPIT SCH ×2 (09:52→22:29)
[2020-07-24] MEDS: SODIUM HYPOCHLORITE 0.25% IRRIG 473 ML BOTTLE TOP SCH (09:52)
[2020-07-24] MEDS: carvediloL 3.125 MG TABLET PO SCH ×2 (12:52→22:27)
[2020-07-24] MEDS: ROSUVASTATIN 20 MG TABLET PO SCH (22:27)
[2020-07-25] MEDS: INSULIN LISPRO 100 UNIT/ML SUBCUT SCH ×5 (00:03→21:47)
[2020-07-25] MEDS: ALBUTEROL/IPRATROPIUM 3 ML NEB RESP TX SCH ×4 (01:24→20:21)
[2020-07-25] MEDS: oxyCODONE/ACETAMINOPHEN 5-325 MG TABLET PO PRN ×2 (06:20→12:19)
[2020-07-25] MEDS: VENLAFAXINE 37.5 MG TABLET PO SCH (08:54)
[2020-07-25] MEDS: DOCUSATE SODIUM 100 MG CAPSULE PO SCH (08:54)
[2020-07-25] MEDS: ASPIRIN EC 81 MG TABLET PO SCH (08:54)
[2020-07-25] MEDS: GABAPENTIN 300 MG CAPSULE PO SCH ×3 (08:54→21:45)
[2020-07-25] MEDS: FERROUS SULFATE 325 MG TABLET PO SCH (08:54)
[2020-07-25] MEDS: PANTOPRAZOLE 40 MG TABLET PO SCH ×2 (08:54→21:45)
[2020-07-25] MEDS: CALCIUM ACETATE 667 MG CAPSULE PO SCH ×3 (08:54→17:23)
[2020-07-25] MEDS: carvediloL 3.125 MG TABLET PO SCH ×2 (08:54→21:45)
[2020-07-25] MEDS: ASCORBIC ACID 500 MG TABLET PO SCH (08:54)
[2020-07-25] MEDS: CHLORHEXIDINE 0.12% ORAL RINSE 60 ML BOTTLE SWISH/SPIT SCH ×2 (08:55→21:47)
[2020-07-25] MEDS: SODIUM HYPOCHLORITE 0.25% IRRIG 473 ML BOTTLE TOP SCH (09:00)
[2020-07-25 12:15] LABS: Basophils % 0.4 % (0.0-0.8); Eosinophils # 0.3 10*3/uL (0.0-0.87); Eosinophils % 3.1 % (0.00-10.9); Hemoglobin 10.4 GM/DL (14.0-18.0); Immature Granulocytes % 0.9 %; Immature Granulocytes Absolute 0.09 #; Lymphocytes # 0.8 10*3/uL (1.4-4.0); Lymphocytes % 7.7 % (21.2-54.2); Mean Corpuscular HGB Conc 32.5 GM/DL (32-36); Mean Platelet Volume 11.2 FL (9.6-12.0); Monocytes % 8.4 % (1.7-12.7); Neutrophils % 79.5 % (38.7-73.9); Platelet Count 159 T/CUMM (130-400); Red Blood Count 3.37 MC/CUMM (3.8-5.5); Red Cell Distribution Width 14.6 % (9.3-17.3); White Blood Count 10.4 T/CUMM (4-12)
[2020-07-25 12:38] LABS: Alanine Aminotransferase 18 U/L (16-61); Albumin 2.6 G/DL (3.4-5.0); Alkaline Phosphatase 165 U/L (45-117); Aspartate Amino Transferase 30 U/L (0-37); Bilirubin,Indirect 1.5 MG/DL (0.0-1.0); Blood Urea Nitrogen 46 MG/DL (7-18); Calcium 8.2 MG/DL (8.5-10.1); Estimated Glom Filtration Rate 7 ML/MIN; Glucose 145 MG/DL (74-106); Osmolality,Calculated 284.1 MOS/KG (273-304); Total Protein 6.9 G/DL (6.4-8.3)
[2020-07-25] MEDS: ROSUVASTATIN 20 MG TABLET PO SCH (21:45)
[2020-07-26] MEDS: ALBUTEROL/IPRATROPIUM 3 ML NEB RESP TX SCH ×2 (02:24→07:30)
[2020-07-26 05:51] LABS: Basophils % 0.4 % (0.0-0.8); Eosinophils # 0.4 10*3/uL (0.0-0.87); Eosinophils % 3.9 % (0.00-10.9); Hematocrit 30.4 VOL% (42.0-52.0); Hemoglobin 9.8 GM/DL (14.0-18.0); Immature Granulocytes % 0.9 %; Immature Granulocytes Absolute 0.08 #; Lymphocytes # 1.1 10*3/uL (1.4-4.0); Lymphocytes % 12.3 % (21.2-54.2); Mean Corpuscular HGB Conc 32.2 GM/DL (32-36); Mean Corpuscular Volume 94.4 FL (87-102); Mean Platelet Volume 11.5 FL (9.6-12.0); Monocytes % 9.8 % (1.7-12.7); Neutrophils % 72.7 % (38.7-73.9); Platelet Count 145 T/CUMM (130-400); Red Blood Count 3.22 MC/CUMM (3.8-5.5); Red Cell Distribution Width 14.7 % (9.3-17.3); White Blood Count 9.2 T/CUMM (4-12)
[2020-07-26 06:08] LABS: Blood Urea Nitrogen 58 MG/DL (7-18); Calcium 8.5 MG/DL (8.5-10.1); Estimated Glom Filtration Rate 6 ML/MIN; Glucose 114 MG/DL (74-106); Osmolality,Calculated 286.1 MOS/KG (273-304)
[2020-07-26] MEDS: GABAPENTIN 300 MG CAPSULE PO SCH ×2 (08:44→14:58)
[2020-07-26] MEDS: ASPIRIN EC 81 MG TABLET PO SCH (08:44)
[2020-07-26] MEDS: FERROUS SULFATE 325 MG TABLET PO SCH (08:44)
[2020-07-26] MEDS: CALCIUM ACETATE 667 MG CAPSULE PO SCH ×2 (08:44→14:58)
[2020-07-26] MEDS: PANTOPRAZOLE 40 MG TABLET PO SCH (08:45)
[2020-07-26] MEDS: carvediloL 3.125 MG TABLET PO SCH (08:45)
[2020-07-26] MEDS: DOCUSATE SODIUM 100 MG CAPSULE PO SCH (08:45)
[2020-07-26] MEDS: VENLAFAXINE 37.5 MG TABLET PO SCH (08:45)
[2020-07-26] MEDS: ASCORBIC ACID 500 MG TABLET PO SCH (08:45)
[2020-07-26] MEDS: INSULIN LISPRO 100 UNIT/ML SUBCUT SCH ×2 (08:47→13:30)
[2020-07-26] MEDS: oxyCODONE/ACETAMINOPHEN 5-325 MG TABLET PO PRN (08:56)
[2020-07-26] MEDS ORDERED: POLYETHYLENE GLYCOL POWDER 17 GM PACK PO SCH (09:00)
[2020-07-26] MEDS: CHLORHEXIDINE 0.12% ORAL RINSE 60 ML BOTTLE SWISH/SPIT SCH (09:59)
[2020-07-26] MEDS: SODIUM HYPOCHLORITE 0.25% IRRIG 473 ML BOTTLE TOP SCH (14:58)
[2020-07-26 16:31] VITALS: BP 120/66
== END 2020-07-26 15:37 | DRG 233 ==
LOC: N.ED 14:27 → N.EDINP 14:27 → N.TELEN 18:05 → N.CVR 07-18 10:16 → N.TELES 07-20 11:23
PROVIDERS: ADMIT Internal Medicine Cardiovascular Disease; ATTEND Internal Medicine Cardiovascular Disease
PROC: CLCCHCL (ICD-10-PCS; 2020-07-15 14:15)

== ENCOUNTER 2021-08-31 17:29 | Inpatient (IN) ==
[2021-08-31] MEDS ORDERED: hydrALAZINE 20 MG/1 ML VIAL IV PRN (20:22)
[2021-08-31] MEDS ORDERED: ONDANSETRON 4 MG/2 ML VIAL IV PRN (20:22)
[2021-08-31] MEDS ORDERED: GLUCAGON 1 MG VIAL IM PRN (20:22)
[2021-08-31] MEDS ORDERED: ACETAMINOPHEN 325 MG TABLET PO PRN (20:22)
[2021-08-31] MEDS ORDERED: DEXTROSE 10% 25 GM/250 ML BAG IV PRN (20:39)
[2021-08-31] MEDS ORDERED: PIPERACILLIN/TAZOBACTAM 3,375 MG in SODIUM CHLORIDE 0.9% 100 ML IV SCH (21:00)
[2021-08-31] MEDS ORDERED: HEPARIN 5,000 UNIT/1 ML VIAL SUBCUT SCH (21:00)
[2021-08-31 21:10] LABS: Basophils % 0.2 % (0.0-0.8); Hematocrit 33.7 VOL% (42.0-52.0); Hemoglobin 11.2 GM/DL (14.0-18.0); Immature Granulocytes % 0.9 %; Immature Granulocytes Absolute 0.12 #; Lymphocytes # 0.9 10*3/uL (1.4-4.0); Lymphocytes % 6.8 % (21.2-54.2); Mean Corpuscular HGB Conc 33.2 GM/DL (32-36); Mean Corpuscular Volume 97.1 FL (87-102); Mean Platelet Volume 11.6 FL (9.6-12.0); Monocytes % 5.3 % (1.7-12.7); Neutrophils % 86.8 % (38.7-73.9); Platelet Count 75 T/CUMM (130-400); Red Blood Count 3.47 MC/CUMM (3.8-5.5); Red Cell Distribution Width 13.4 % (9.3-17.3); White Blood Count 13.7 T/CUMM (4-12)
[2021-08-31 21:32] LABS: PT Patient Result 11.6 SECS (10.5-12.0)
[2021-08-31 21:45] LABS: Risk Ratio 5.04
[2021-08-31 21:47] LABS: Albumin 2.5 G/DL (3.4-5.0); Bilirubin,Total 0.8 MG/DL (0.20-1.00); Calcium 7.9 MG/DL (8.5-10.1); Osmolality,Calculated 278.7 MOS/KG (273-304); Potassium 3.5 MMOL/L (3.5-5.1); Thyroid Stimulating Hormone 1.54 uIU/ml (0.358-3.74)
[2021-08-31 21:57] LABS: Ferritin 4838.9 ng/mL (26-388)
[2021-08-31] MEDS ORDERED: VANCOMYCIN INJ 1,000 MG in SODIUM CHLORIDE 0.9% 250 ML IV SCH (22:30)
[2021-08-31] MEDS: ASCORBIC ACID 500 MG TABLET PO SCH (22:50)
[2021-08-31] MEDS: INSULIN REGULAR 100 UNIT/ML SUBCUT SCH (22:51)
[2021-08-31] MEDS: DOCUSATE SODIUM 100 MG CAPSULE PO SCH (22:51)
[2021-09-01] MEDS ORDERED: VANCOMYCIN INJ 1,750 MG in SODIUM CHLORIDE 0.9% 500 ML IV ONE (02:00)
[2021-09-01 04:40] LABS: Basophils % 0.1 % (0.0-0.8); Eosinophils % 0.1 % (0.00-10.9); Hemoglobin 7.7 GM/DL (14.0-18.0); Immature Granulocytes % 1.2 %; Immature Granulocytes Absolute 0.11 #; Lymphocytes # 1.2 10*3/uL (1.4-4.0); Lymphocytes % 13.2 % (21.2-54.2); Mean Corpuscular HGB Conc 32.1 GM/DL (32-36); Mean Corpuscular Volume 101.3 FL (87-102); Mean Platelet Volume 12.2 FL (9.6-12.0); Monocytes % 4.9 % (1.7-12.7); Neutrophils % 80.5 % (38.7-73.9); Platelet Count 57 T/CUMM (130-400); Red Blood Count 2.37 MC/CUMM (3.8-5.5); Red Cell Distribution Width 13.5 % (9.3-17.3); White Blood Count 9.2 T/CUMM (4-12)
[2021-09-01 04:59] LABS: Calcium 6.2 MG/DL (8.5-10.1); Osmolality,Calculated 285.1 MOS/KG (273-304); Potassium 2.8 MMOL/L (3.5-5.1)
[2021-09-01 05:09] LABS: Band Neutrophils 2 % (0-10); Hypochromia 1+; Lymphocytes 5 % (20-55); Microcytosis 1+; Platelet Estimate Decreased; Segmented Neutrophils 88 % (50-85); Total Cells Counted 100
[2021-09-01 07:13] LABS: Basophils % 0.1 % (0.0-0.8); Eosinophils % 0.1 % (0.00-10.9); Hematocrit 30.8 VOL% (42.0-52.0); Hemoglobin 10.3 GM/DL (14.0-18.0); Immature Granulocytes % 1.3 %; Immature Granulocytes Absolute 0.16 #; Lymphocytes # 0.9 10*3/uL (1.4-4.0); Lymphocytes % 7.5 % (21.2-54.2); Mean Corpuscular HGB Conc 33.4 GM/DL (32-36); Mean Corpuscular Volume 98.1 FL (87-102); Mean Platelet Volume 11.9 FL (9.6-12.0); Red Blood Count 3.14 MC/CUMM (3.8-5.5); Red Cell Distribution Width 13.5 % (9.3-17.3); White Blood Count 12.6 T/CUMM (4-12)
[2021-09-01 07:14] LABS: Platelet Count 78 T/CUMM (130-400)
[2021-09-01 07:31] LABS: Calcium 7.8 MG/DL (8.5-10.1); Osmolality,Calculated 282.5 MOS/KG (273-304); Potassium 3.4 MMOL/L (3.5-5.1)
[2021-09-01] MEDS: DOCUSATE SODIUM 100 MG CAPSULE PO SCH ×2 (09:26→21:43)
[2021-09-01] MEDS: ZINC GLUCONATE 50 MG TABLET PO SCH (09:26)
[2021-09-01] MEDS: PANTOPRAZOLE 40 MG TABLET PO SCH (09:26)
[2021-09-01] MEDS: ASCORBIC ACID 500 MG TABLET PO SCH ×2 (09:26→21:43)
[2021-09-01] MEDS: CHOLECALCIFEROL 1,000 UNIT TABLET PO SCH (09:26)
[2021-09-01] MEDS: DEXAMETHASONE 4 MG/1 ML VIAL IV SCH (09:27)
[2021-09-01] MEDS: INSULIN REGULAR 100 UNIT/ML SUBCUT SCH ×4 (09:27→21:42)
[2021-09-01] MEDS: PIPERACILLIN/TAZOBACTAM 3,375 MG in SODIUM CHLORIDE 0.9% 100 ML IV SCH ×2 (11:43→22:50)
[2021-09-01] MEDS: ENOXAPARIN 40 MG/0.4 ML SYRINGE SUBCUT SCH (13:01)
[2021-09-01] MEDS: ASPIRIN EC 81 MG TABLET PO SCH (13:01)
[2021-09-01] MEDS ORDERED: LIDOCAINE/PRILOCAINE CREAM 5 GM TUBE TOP PRN (14:15)
[2021-09-01] MEDS ORDERED: VANCOMYCIN INJ 500 MG in SODIUM CHLORIDE 0.9% 100 ML IV PRN (17:00)
[2021-09-01] MEDS: CALCIUM ACETATE 667 MG CAPSULE PO SCH (17:16)
[2021-09-02 07:13] LABS: Basophils % 0.1 % (0.0-0.8); Hematocrit 32.3 VOL% (42.0-52.0); Hemoglobin 10.9 GM/DL (14.0-18.0); Immature Granulocytes % 2.3 %; Immature Granulocytes Absolute 0.31 #; Lymphocytes # 0.9 10*3/uL (1.4-4.0); Lymphocytes % 6.2 % (21.2-54.2); Mean Corpuscular HGB Conc 33.7 GM/DL (32-36); Mean Corpuscular Volume 95.6 FL (87-102); Monocytes % 5.3 % (1.7-12.7); Neutrophils % 86.1 % (38.7-73.9); Platelet Count 96 T/CUMM (130-400); Red Blood Count 3.38 MC/CUMM (3.8-5.5); Red Cell Distribution Width 13.3 % (9.3-17.3); White Blood Count 13.6 T/CUMM (4-12)
[2021-09-02 07:45] LABS: Calcium 7.8 MG/DL (8.5-10.1); Osmolality,Calculated 282.1 MOS/KG (273-304); Potassium 3.3 MMOL/L (3.5-5.1)
[2021-09-02] MEDS ORDERED: ASPIRIN EC 81 MG TABLET PO SCH (09:00)
[2021-09-02] MEDS: DOCUSATE SODIUM 100 MG CAPSULE PO SCH ×2 (09:20→23:07)
[2021-09-02] MEDS: ZINC GLUCONATE 50 MG TABLET PO SCH (09:20)
[2021-09-02] MEDS: CALCIUM ACETATE 667 MG CAPSULE PO SCH ×3 (09:20→17:30)
[2021-09-02] MEDS: ASCORBIC ACID 500 MG TABLET PO SCH ×2 (09:20→23:08)
[2021-09-02] MEDS: PANTOPRAZOLE 40 MG TABLET PO SCH (09:20)
[2021-09-02] MEDS: DEXAMETHASONE 4 MG/1 ML VIAL IV SCH (09:20)
[2021-09-02] MEDS: ASPIRIN EC 81 MG TABLET PO SCH (09:20)
[2021-09-02] MEDS: CHOLECALCIFEROL 1,000 UNIT TABLET PO SCH (09:20)
[2021-09-02] MEDS: INSULIN REGULAR 100 UNIT/ML SUBCUT SCH ×4 (09:21→23:23)
[2021-09-02] MEDS: ENOXAPARIN 40 MG/0.4 ML SYRINGE SUBCUT SCH (12:30)
[2021-09-02] MEDS: PIPERACILLIN/TAZOBACTAM 3,375 MG in SODIUM CHLORIDE 0.9% 100 ML IV SCH (17:30)
[2021-09-02] MEDS ORDERED: VANCOMYCIN INJ 500 MG in SODIUM CHLORIDE 0.9% 100 ML IV ONE ×3 (18:00→23:30)
[2021-09-03] MEDS: PIPERACILLIN/TAZOBACTAM 3,375 MG in SODIUM CHLORIDE 0.9% 100 ML IV SCH ×2 (04:58→16:21)
[2021-09-03 05:32] LABS: Calcium 7.7 MG/DL (8.5-10.1); Osmolality,Calculated 285.7 MOS/KG (273-304); Potassium 3.5 MMOL/L (3.5-5.1)
[2021-09-03 05:33] LABS: Basophils % 0.1 % (0.0-0.8); Hematocrit 31.1 VOL% (42.0-52.0); Hemoglobin 10.3 GM/DL (14.0-18.0); Lymphocytes # 0.8 10*3/uL (1.4-4.0); Lymphocytes % 8.6 % (21.2-54.2); Mean Corpuscular HGB Conc 33.1 GM/DL (32-36); Mean Corpuscular Volume 97.5 FL (87-102); Mean Platelet Volume 12.2 FL (9.6-12.0); Monocytes % 6.1 % (1.7-12.7); Neutrophils % 84.2 % (38.7-73.9); Platelet Count 97 T/CUMM (130-400); Red Blood Count 3.19 MC/CUMM (3.8-5.5); Red Cell Distribution Width 13.4 % (9.3-17.3); White Blood Count 9.7 T/CUMM (4-12)
[2021-09-03] MEDS: DEXAMETHASONE 4 MG/1 ML VIAL IV SCH (10:36)
[2021-09-03] MEDS: ASCORBIC ACID 500 MG TABLET PO SCH ×2 (10:36→20:58)
[2021-09-03] MEDS: ASPIRIN EC 81 MG TABLET PO SCH (10:37)
[2021-09-03] MEDS: CHOLECALCIFEROL 1,000 UNIT TABLET PO SCH (10:37)
[2021-09-03] MEDS: CALCIUM ACETATE 667 MG CAPSULE PO SCH ×3 (10:37→16:20)
[2021-09-03] MEDS: ZINC GLUCONATE 50 MG TABLET PO SCH (10:37)
[2021-09-03] MEDS: PANTOPRAZOLE 40 MG TABLET PO SCH (10:37)
[2021-09-03] MEDS: ENOXAPARIN 30 MG/0.3 ML SYRINGE SUBCUT SCH (13:06)
[2021-09-03] MEDS: INSULIN REGULAR 100 UNIT/ML SUBCUT SCH ×3 (15:52→20:58)
[2021-09-03] MEDS: DOCUSATE SODIUM 100 MG CAPSULE PO SCH ×2 (15:52→20:58)
[2021-09-04] MEDS: PIPERACILLIN/TAZOBACTAM 3,375 MG in SODIUM CHLORIDE 0.9% 100 ML IV SCH (05:25)
[2021-09-04] MEDS: CHOLECALCIFEROL 1,000 UNIT TABLET PO SCH (09:28)
[2021-09-04] MEDS: ASCORBIC ACID 500 MG TABLET PO SCH (09:28)
[2021-09-04] MEDS: DOCUSATE SODIUM 100 MG CAPSULE PO SCH (09:28)
[2021-09-04] MEDS: CALCIUM ACETATE 667 MG CAPSULE PO SCH ×2 (09:28→12:59)
[2021-09-04] MEDS: ASPIRIN EC 81 MG TABLET PO SCH (09:28)
[2021-09-04] MEDS: ZINC GLUCONATE 50 MG TABLET PO SCH (09:28)
[2021-09-04] MEDS: DEXAMETHASONE 4 MG/1 ML VIAL IV SCH (09:29)
[2021-09-04] MEDS: INSULIN REGULAR 100 UNIT/ML SUBCUT SCH ×2 (12:20→13:00)
[2021-09-04 12:34] VITALS: BP 155/79
[2021-09-04] MEDS: ENOXAPARIN 30 MG/0.3 ML SYRINGE SUBCUT SCH (12:41)
[2021-09-04] MEDS: PANTOPRAZOLE 40 MG TABLET PO SCH (12:59)
== END 2021-09-04 13:50 | disposition home or self-care (01) | DRG 177 ==
LOC: N.3E → SUATTDRO 19:47
PROVIDERS: ADMIT Internal Medicine; ATTEND Internal Medicine

== ENCOUNTER 2022-01-25 05:06 | Observation (INO) ==
[2022-01-25] MEDS ORDERED: FAMOTIDINE 20 MG TABLET PO ONE (07:06)
[2022-01-25] MEDS ORDERED: DIAZEPAM 5 MG TABLET PO ONE (07:06)
[2022-01-25 07:22] LABS: Basophils # 0.1 10*3/uL (0.0-0.2); Basophils % 0.8 % (0.0-0.8); Eosinophils # 0.2 10*3/uL (0.0-0.87); Hematocrit 34.2 VOL% (42.0-52.0); Hemoglobin 11.8 GM/DL (14.0-18.0); Immature Granulocytes % 0.8 %; Immature Granulocytes Absolute 0.05 #; Lymphocytes # 1.4 10*3/uL (1.4-4.0); Lymphocytes % 20.3 % (21.2-54.2); Mean Corpuscular HGB Conc 34.5 GM/DL (32-36); Mean Corpuscular Volume 93.7 FL (87-102); Mean Platelet Volume 10.9 FL (9.6-12.0); Monocytes # 0.5 10*3/uL (0.11-0.8); Monocytes % 7.2 % (1.7-12.7); Neutrophils % 67.9 % (38.7-73.9); Platelet Count 144 T/CUMM (130-400); Red Blood Count 3.65 MC/CUMM (3.8-5.5); Red Cell Distribution Width 13.6 % (9.3-17.3); White Blood Count 6.7 T/CUMM (4-12)
[2022-01-25 07:40] LABS: Calcium 8.8 MG/DL (8.5-10.1); Osmolality,Calculated 272.1 MOS/KG (273-304); Potassium 3.3 MMOL/L (3.5-5.1)
[2022-01-25] MEDS ORDERED: ceFAZolin 1,000 MG VIAL ONE (08:29)
[2022-01-25] MEDS ORDERED: SODIUM CHLORIDE 0.9% 250 ML IV SCH (08:30)
[2022-01-25] MEDS ORDERED: LIDOCAINE 2% 5 ML VIAL ONE (10:56)
[2022-01-25] MEDS ORDERED: SEVOFLURANE 1 UNIT/15 MINUTE INH ONE ×9 (10:56→13:34)
[2022-01-25] MEDS ORDERED: ONDANSETRON 4 MG/2 ML VIAL ONE (10:56)
[2022-01-25] MEDS ORDERED: DEXAMETHASONE 4 MG/1 ML VIAL ONE (10:56)
[2022-01-25] MEDS ORDERED: propofoL 200 MG/20 ML VIAL IV ONE (10:56)
[2022-01-25] MEDS ORDERED: fentaNYL 100 MCG/2 ML VIAL ONE (10:57)
[2022-01-25] MEDS ORDERED: MIDAZOLAM 2 MG/2 ML VIAL ONE (10:57)
[2022-01-25] MEDS ORDERED: THROMBIN TOPICAL (RECOMBINANT) 5,000 UNIT VIAL TOP ONE (10:57)
[2022-01-25] MEDS ORDERED: BUPIVACAINE MPF 0.25% 10 ML VIAL ONE (10:57)
[2022-01-25] MEDS ORDERED: LIDOCAINE 1%/EPI INJ 20 ML VIAL ONE (10:58)
[2022-01-25] MEDS ORDERED: HEPARIN 5,000 UNIT/1 ML VIAL ONE ×2 (10:58→11:34)
[2022-01-25] MEDS ORDERED: ETOMIDATE 40 MG/20 ML VIAL IV ONE (10:58)
[2022-01-25] MEDS ORDERED: ePHEDrine 50 MG/ML VIAL ONE (11:36)
[2022-01-25] MEDS ORDERED: PHENYLEPHRINE 1 MG/10 ML SYRINGE IV ONE ×3 (11:58→13:33)
[2022-01-25] MEDS ORDERED: SODIUM CHLORIDE 0.9% 250 ML IV ONE ×2 (11:58→13:15)
[2022-01-25] MEDS ORDERED: PHENYLEPHRINE 10 MG/1 ML VIAL IV ONE (13:16)
[2022-01-25] MEDS ORDERED: ALBUTEROL/IPRATROPIUM 3 ML NEB RESP TX PRN (14:26)
[2022-01-25] MEDS ORDERED: DEXTROSE 10% 250 ML BAG IV PRN (14:26)
[2022-01-25] MEDS ORDERED: HYDROmorphone 1 MG/1 ML SYRINGE IV PRN (14:26)
[2022-01-25] MEDS ORDERED: ONDANSETRON 4 MG/2 ML VIAL IV PRN (14:26)
[2022-01-25] MEDS ORDERED: KETOROLAC 15 MG/1 ML VIAL IV PRN (14:26)
[2022-01-25] MEDS ORDERED: GLUCAGON 1 MG VIAL IM PRN (14:26)
[2022-01-25] MEDS ORDERED: ACETAMINOPHEN 325 MG TABLET PO PRN (14:26)
[2022-01-25] MEDS: INSULIN LISPRO 100 UNIT/ML SUBCUT SCH (17:27)
[2022-01-25] MEDS: CALCIUM ACETATE 667 MG CAPSULE PO SCH (17:28)
[2022-01-25] MEDS: ceFAZolin 2,000 MG/50 ML DUPLEX IV SCH (21:24)
[2022-01-26] MEDS: ceFAZolin 2,000 MG/50 ML DUPLEX IV SCH (03:21)
[2022-01-26 05:51] LABS: Basophils % 0.3 % (0.0-0.8); Eosinophils # 0.1 10*3/uL (0.0-0.87); Eosinophils % 0.5 % (0.00-10.9); Hematocrit 33.6 VOL% (42.0-52.0); Hemoglobin 11.3 GM/DL (14.0-18.0); Immature Granulocytes % 0.5 %; Immature Granulocytes Absolute 0.05 #; Lymphocytes # 1.1 10*3/uL (1.4-4.0); Lymphocytes % 11.7 % (21.2-54.2); Mean Corpuscular HGB Conc 33.6 GM/DL (32-36); Mean Corpuscular Volume 95.7 FL (87-102); Mean Platelet Volume 11.3 FL (9.6-12.0); Monocytes # 0.6 10*3/uL (0.11-0.8); Monocytes % 6.2 % (1.7-12.7); Neutrophils % 80.8 % (38.7-73.9); Platelet Count 114 T/CUMM (130-400); Red Blood Count 3.51 MC/CUMM (3.8-5.5); Red Cell Distribution Width 13.7 % (9.3-17.3); White Blood Count 9.3 T/CUMM (4-12)
[2022-01-26 06:05] LABS: Calcium 8.7 MG/DL (8.5-10.1); Osmolality,Calculated 282.1 MOS/KG (273-304); Potassium 3.3 MMOL/L (3.5-5.1)
[2022-01-26 07:37] VITALS: BP 157/87
[2022-01-26] MEDS: CALCIUM ACETATE 667 MG CAPSULE PO SCH (08:21)
[2022-01-26] MEDS: INSULIN LISPRO 100 UNIT/ML SUBCUT SCH (08:22)
[2022-01-26] MEDS ORDERED: PANTOPRAZOLE 40 MG TABLET PO SCH (09:00)
== END 2022-01-26 10:10 | disposition home or self-care (01) ==
LOC: N.3E 05:06 → N.OR 05:06 → N.SDSINP 05:07 → N.3E 14:42
PROVIDERS: ADMIT Surgery; ATTEND Surgery
PROC: VAVDCFI (2022-01-25 11:15)

== ENCOUNTER 2022-03-18 08:32 | Inpatient (IN) ==
[2022-03-18 10:16] LABS: Basophils # 0.1 10*3/uL (0.0-0.2); Basophils % 0.7 % (0.0-0.8); Eosinophils # 0.3 10*3/uL (0.0-0.87); Eosinophils % 2.1 % (0.00-10.9); Hematocrit 38.8 VOL% (42.0-52.0); Hemoglobin 13.1 GM/DL (14.0-18.0); Immature Granulocytes % 0.6 %; Immature Granulocytes Absolute 0.07 #; Lymphocytes # 1.5 10*3/uL (1.4-4.0); Lymphocytes % 12.2 % (21.2-54.2); Mean Corpuscular HGB Conc 33.8 GM/DL (32-36); Mean Corpuscular Volume 94.2 FL (87-102); Mean Platelet Volume 11.7 FL (9.6-12.0); Monocytes # 0.7 10*3/uL (0.11-0.8); Neutrophils % 78.4 % (38.7-73.9); Platelet Count 113 T/CUMM (130-400); Red Blood Count 4.12 MC/CUMM (3.8-5.5); Red Cell Distribution Width 13.1 % (9.3-17.3)
[2022-03-18] MEDS ORDERED: VANCOMYCIN INJ 1,500 MG in SODIUM CHLORIDE 0.9% 500 ML IV STA (10:23)
[2022-03-18] MEDS ORDERED: GENTAMICIN INJ 200 MG in SODIUM CHLORIDE 0.9% 100 ML IV STA (10:23)
[2022-03-18 10:24] LABS: Albumin 3.4 G/DL (3.4-5.0); Bilirubin,Total 1.1 MG/DL (0.20-1.00); Calcium 9.1 MG/DL (8.5-10.1); Osmolality,Calculated 277.4 MOS/KG (273-304); Potassium 3.6 MMOL/L (3.5-5.1); Total Protein 7.6 G/DL (6.4-8.2)
[2022-03-18] MEDS ORDERED: hydrALAZINE 20 MG/1 ML VIAL IV STA (10:50)
[2022-03-18] MEDS ORDERED: ALUMINUM/MAGNES/SIMETH MAX STR 30 ML UDCUP PO PRN (10:56)
[2022-03-18] MEDS ORDERED: hydrALAZINE 20 MG/1 ML VIAL IV PRN (10:56)
[2022-03-18] MEDS ORDERED: DOCUSATE SODIUM 100 MG CAPSULE PO PRN (10:56)
[2022-03-18] MEDS ORDERED: ONDANSETRON 4 MG/2 ML VIAL IV PRN (10:56)
[2022-03-18] MEDS ORDERED: LACTULOSE 20 GM/30 ML UDCUP PO PRN (10:56)
[2022-03-18] MEDS ORDERED: GLUCAGON 1 MG VIAL IM PRN (10:56)
[2022-03-18] MEDS ORDERED: ACETAMINOPHEN 325 MG TABLET PO PRN (10:56)
[2022-03-18] MEDS ORDERED: MORPHINE 2 MG/1 ML SYRINGE IV PRN (11:03)
[2022-03-18] MEDS ORDERED: DEXTROSE 10% 250 ML BAG IV PRN (11:09)
[2022-03-18] MEDS: HEPARIN 5,000 UNIT/1 ML VIAL SUBCUT SCH ×2 (11:34→23:47)
[2022-03-18] MEDS: carvediloL 3.125 MG TABLET PO SCH ×2 (11:34→20:59)
[2022-03-18] MEDS: INSULIN LISPRO 100 UNIT/ML SUBCUT SCH ×3 (11:47→21:39)
[2022-03-18] MEDS: MEROPENEM 500 MG in SODIUM CHLORIDE 0.9% 100 ML IV SCH (15:44)
[2022-03-18] MEDS: hydrALAZINE 25 MG TABLET PO SCH ×2 (15:44→20:59)
[2022-03-18] MEDS: CALCIUM ACETATE 667 MG CAPSULE PO SCH (16:03)
[2022-03-19 05:15] LABS: Basophils # 0.1 10*3/uL (0.0-0.2); Basophils % 0.5 % (0.0-0.8); Eosinophils # 0.3 10*3/uL (0.0-0.87); Hemoglobin 11.6 GM/DL (14.0-18.0); Immature Granulocytes % 0.6 %; Immature Granulocytes Absolute 0.06 #; Lymphocytes # 1.1 10*3/uL (1.4-4.0); Lymphocytes % 11.5 % (21.2-54.2); Mean Corpuscular HGB Conc 34.1 GM/DL (32-36); Mean Corpuscular Volume 93.4 FL (87-102); Mean Platelet Volume 11.9 FL (9.6-12.0); Monocytes # 0.7 10*3/uL (0.11-0.8); Monocytes % 7.4 % (1.7-12.7); Platelet Count 110 T/CUMM (130-400); Red Blood Count 3.64 MC/CUMM (3.8-5.5); Red Cell Distribution Width 13.2 % (9.3-17.3); White Blood Count 9.4 T/CUMM (4-12)
[2022-03-19 05:30] LABS: Albumin 2.8 G/DL (3.4-5.0); Bilirubin,Total 0.7 MG/DL (0.20-1.00); Potassium 3.7 MMOL/L (3.5-5.1); Risk Ratio 4.03; Total Protein 6.7 G/DL (6.4-8.2); VLDL Cholesterol 31.6 MG/DL
[2022-03-19] MEDS: INSULIN LISPRO 100 UNIT/ML SUBCUT SCH ×4 (07:44→21:32)
[2022-03-19] MEDS: CALCIUM ACETATE 667 MG CAPSULE PO SCH ×3 (08:32→17:36)
[2022-03-19] MEDS: PANTOPRAZOLE 40 MG TABLET PO SCH (08:32)
[2022-03-19] MEDS: hydrALAZINE 25 MG TABLET PO SCH ×3 (08:33→21:31)
[2022-03-19] MEDS: carvediloL 3.125 MG TABLET PO SCH ×2 (08:33→21:31)
[2022-03-19] MEDS: HEPARIN 5,000 UNIT/1 ML VIAL SUBCUT SCH (12:58)
[2022-03-19] MEDS ORDERED: HEPARIN 10,000 UNIT/10 ML VIAL IV PRN (16:22)
[2022-03-19] MEDS ORDERED: VANCOMYCIN INJ 500 MG in SODIUM CHLORIDE 0.9% 100 ML IV ONE (17:00)
[2022-03-19] MEDS ORDERED: VANCOMYCIN INJ 500 MG in SODIUM CHLORIDE 0.9% 100 ML IV PRN (17:00)
[2022-03-19] MEDS: MEROPENEM 500 MG in SODIUM CHLORIDE 0.9% 100 ML IV SCH (21:31)
[2022-03-20 05:11] LABS: Basophils # 0.1 10*3/uL (0.0-0.2); Basophils % 0.7 % (0.0-0.8); Eosinophils # 0.2 10*3/uL (0.0-0.87); Eosinophils % 2.6 % (0.00-10.9); Hematocrit 34.7 VOL% (42.0-52.0); Hemoglobin 11.3 GM/DL (14.0-18.0); Immature Granulocytes % 0.6 %; Immature Granulocytes Absolute 0.05 #; Lymphocytes % 11.6 % (21.2-54.2); Mean Corpuscular HGB Conc 32.6 GM/DL (32-36); Mean Corpuscular Volume 97.5 FL (87-102); Mean Platelet Volume 11.5 FL (9.6-12.0); Monocytes # 0.6 10*3/uL (0.11-0.8); Monocytes % 6.9 % (1.7-12.7); Neutrophils % 77.6 % (38.7-73.9); Platelet Count 117 T/CUMM (130-400); Red Blood Count 3.56 MC/CUMM (3.8-5.5); Red Cell Distribution Width 13.2 % (9.3-17.3); White Blood Count 8.9 T/CUMM (4-12)
[2022-03-20 05:30] LABS: Calcium 8.5 MG/DL (8.5-10.1); Osmolality,Calculated 277.8 MOS/KG (273-304); Potassium 3.7 MMOL/L (3.5-5.1)
[2022-03-20] MEDS: INSULIN LISPRO 100 UNIT/ML SUBCUT SCH ×4 (07:58→21:33)
[2022-03-20] MEDS ORDERED: MIDAZOLAM 2 MG/2 ML VIAL ONE (11:22)
[2022-03-20] MEDS ORDERED: fentaNYL 100 MCG/2 ML VIAL ONE (11:22)
[2022-03-20] MEDS: carvediloL 3.125 MG TABLET PO SCH ×2 (11:36→20:08)
[2022-03-20] MEDS: hydrALAZINE 25 MG TABLET PO SCH ×3 (11:36→20:08)
[2022-03-20] MEDS: CALCIUM ACETATE 667 MG CAPSULE PO SCH ×3 (11:36→17:19)
[2022-03-20] MEDS: PANTOPRAZOLE 40 MG TABLET PO SCH (11:36)
[2022-03-20] MEDS ORDERED: BUPIVACAINE MPF 0.25% 10 ML VIAL ONE (11:37)
[2022-03-20] MEDS ORDERED: HEPARIN 5,000 UNIT/1 ML VIAL ONE (11:37)
[2022-03-20] MEDS ORDERED: LIDOCAINE 1%/EPI INJ 20 ML VIAL ONE (11:37)
[2022-03-20] MEDS ORDERED: SODIUM CHLORIDE 0.9% 250 ML IV SCH (12:00)
[2022-03-20] MEDS ORDERED: SEVOFLURANE 1 UNIT/15 MINUTE INH ONE (12:03)
[2022-03-20] MEDS ORDERED: PHENYLEPHRINE 1 MG/10 ML SYRINGE IV ONE (12:03)
[2022-03-20] MEDS ORDERED: propofoL 200 MG/20 ML VIAL IV ONE (12:03)
[2022-03-20] MEDS ORDERED: ETOMIDATE 40 MG/20 ML VIAL IV ONE (12:03)
[2022-03-20] MEDS ORDERED: LIDOCAINE 2% 5 ML VIAL ONE (12:03)
[2022-03-20] MEDS ORDERED: ePHEDrine 50 MG/ML VIAL ONE (12:11)
[2022-03-20] MEDS ORDERED: MEPERIDINE 25 MG/1 ML VIAL IV PRN (12:55)
[2022-03-20] MEDS ORDERED: diphenhydrAMINE 50 MG/1 ML VIAL IV PRN (12:55)
[2022-03-20] MEDS ORDERED: PROMETHAZINE INJ 25 MG in SODIUM CHLORIDE 0.9% 50 ML IV PRN (12:55)
[2022-03-20] MEDS ORDERED: ONDANSETRON 4 MG/2 ML VIAL IV PRN (12:55)
[2022-03-20] MEDS: HYDROmorphone 1 MG/1 ML SYRINGE IV PRN ×2 (13:25→13:30)
[2022-03-20] MEDS ORDERED: GLUCAGON 1 MG VIAL IM PRN (14:24)
[2022-03-20] MEDS ORDERED: DEXTROSE 10% 250 ML BAG IV PRN (14:24)
[2022-03-20] MEDS ORDERED: EPOETIN ALFA-EPBX 4,000 UNIT/ML VIAL SUBCUT SCH (18:30)
[2022-03-20] MEDS: MEROPENEM 500 MG in SODIUM CHLORIDE 0.9% 100 ML IV SCH (20:09)
[2022-03-21 06:15] LABS: Osmolality,Calculated 282.1 MOS/KG (273-304); Potassium 3.8 MMOL/L (3.5-5.1)
[2022-03-21] MEDS: PANTOPRAZOLE 40 MG TABLET PO SCH (08:20)
[2022-03-21] MEDS: hydrALAZINE 25 MG TABLET PO SCH ×3 (08:20→20:25)
[2022-03-21] MEDS: carvediloL 3.125 MG TABLET PO SCH ×2 (08:20→20:25)
[2022-03-21 08:27] LABS: Basophils # 0.1 10*3/uL (0.0-0.2); Basophils % 0.6 % (0.0-0.8); Eosinophils # 0.4 10*3/uL (0.0-0.87); Eosinophils % 4.5 % (0.00-10.9); Hematocrit 40.2 VOL% (42.0-52.0); Immature Granulocytes % 0.5 %; Immature Granulocytes Absolute 0.04 #; Lymphocytes # 0.7 10*3/uL (1.4-4.0); Lymphocytes % 8.6 % (21.2-54.2); Mean Corpuscular HGB Conc 33.1 GM/DL (32-36); Mean Corpuscular Volume 96.9 FL (87-102); Mean Platelet Volume 11.4 FL (9.6-12.0); Monocytes # 0.8 10*3/uL (0.11-0.8); Monocytes % 9.3 % (1.7-12.7); Neutrophils % 76.5 % (38.7-73.9); Red Blood Count 4.15 MC/CUMM (3.8-5.5); Red Cell Distribution Width 13.3 % (9.3-17.3); White Blood Count 8.3 T/CUMM (4-12)
[2022-03-21 08:28] LABS: Hemoglobin 13.3 GM/DL (14.0-18.0); Platelet Count 146 T/CUMM (130-400)
[2022-03-21] MEDS: INSULIN LISPRO 100 UNIT/ML SUBCUT SCH ×4 (09:10→20:26)
[2022-03-21] MEDS: CALCIUM ACETATE 667 MG CAPSULE PO SCH ×3 (09:10→17:33)
[2022-03-21] MEDS ORDERED: VANCOMYCIN INJ 500 MG in SODIUM CHLORIDE 0.9% 100 ML IV ONE (17:00)
[2022-03-21] MEDS: MEROPENEM 500 MG in SODIUM CHLORIDE 0.9% 100 ML IV SCH (20:26)
[2022-03-22 05:20] LABS: Basophils # 0.1 10*3/uL (0.0-0.2); Basophils % 0.8 % (0.0-0.8); Eosinophils # 0.2 10*3/uL (0.0-0.87); Hematocrit 32.7 VOL% (42.0-52.0); Hemoglobin 10.6 GM/DL (14.0-18.0); Immature Granulocytes % 1.4 %; Immature Granulocytes Absolute 0.09 #; Lymphocytes # 0.7 10*3/uL (1.4-4.0); Mean Corpuscular HGB Conc 32.4 GM/DL (32-36); Mean Corpuscular Volume 95.6 FL (87-102); Mean Platelet Volume 10.7 FL (9.6-12.0); Monocytes # 0.7 10*3/uL (0.11-0.8); Monocytes % 10.2 % (1.7-12.7); Neutrophils % 73.6 % (38.7-73.9); Platelet Count 110 T/CUMM (130-400); Red Blood Count 3.42 MC/CUMM (3.8-5.5); Red Cell Distribution Width 13.4 % (9.3-17.3); White Blood Count 6.6 T/CUMM (4-12)
[2022-03-22] MEDS: INSULIN LISPRO 100 UNIT/ML SUBCUT SCH ×2 (07:55→11:15)
[2022-03-22] MEDS: CALCIUM ACETATE 667 MG CAPSULE PO SCH (08:19)
[2022-03-22] MEDS: hydrALAZINE 25 MG TABLET PO SCH (08:19)
[2022-03-22] MEDS: PANTOPRAZOLE 40 MG TABLET PO SCH (08:19)
[2022-03-22] MEDS: carvediloL 3.125 MG TABLET PO SCH (08:19)
[2022-03-22 08:43] LABS: Calcium 8.4 MG/DL (8.5-10.1); Osmolality,Calculated 276.1 MOS/KG (273-304); Potassium 3.5 MMOL/L (3.5-5.1)
[2022-03-22 12:22] VITALS: BP 109/29
== END 2022-03-22 12:30 | disposition home or self-care (01) | DRG 264 ==
LOC: N.ED 08:32 → SUATTDRO 10:56 → N.EDINP 10:56 → N.3E 13:02
PROVIDERS: ADMIT Phlebology; ATTEND Internal Medicine

== ENCOUNTER 2022-06-10 21:07 | Inpatient (IN) ==
[2022-06-10 22:11] LABS: Basophils % 0.5 % (0.0-0.8); Eosinophils # 0.2 10*3/uL (0.0-0.87); Eosinophils % 2.5 % (0.00-10.9); Hematocrit 30.8 VOL% (42.0-52.0); Hemoglobin 10.3 GM/DL (14.0-18.0); Immature Granulocytes % 0.7 %; Immature Granulocytes Absolute 0.06 #; Lymphocytes # 0.9 10*3/uL (1.4-4.0); Lymphocytes % 10.4 % (21.2-54.2); Mean Corpuscular HGB Conc 33.4 GM/DL (32-36); Mean Corpuscular Volume 93.9 FL (87-102); Mean Platelet Volume 10.5 FL (9.6-12.0); Monocytes # 0.5 10*3/uL (0.11-0.8); Monocytes % 6.4 % (1.7-12.7); Neutrophils % 79.5 % (38.7-73.9); Platelet Count 219 T/CUMM (130-400); Red Blood Count 3.28 MC/CUMM (3.8-5.5); Red Cell Distribution Width 13.7 % (9.3-17.3); White Blood Count 8.3 T/CUMM (4-12)
[2022-06-10 22:30] LABS: Albumin 2.9 G/DL (3.4-5.0); Bilirubin,Total 0.5 MG/DL (0.20-1.00); Calcium 8.7 MG/DL (8.5-10.1); Osmolality,Calculated 296.1 MOS/KG (273-304); Potassium 4.4 MMOL/L (3.5-5.1); Total Protein 7.7 G/DL (6.4-8.2)
[2022-06-10] MEDS ORDERED: VANCOMYCIN INJ 1,000 MG in SODIUM CHLORIDE 0.9% 250 ML IV STA ×2 (22:56→23:06)
[2022-06-10] MEDS ORDERED: ZALEPLON 5 MG CAPSULE PO PRN (23:16)
[2022-06-10] MEDS ORDERED: guaiFENesin/DM ER 600-30 MG TABLET PO PRN (23:16)
[2022-06-10] MEDS ORDERED: MORPHINE 2 MG/1 ML SYRINGE IV PRN (23:16)
[2022-06-10] MEDS ORDERED: NICOTINE 21 MG/24 HR PATCH TRANSDERM PRN (23:16)
[2022-06-10] MEDS ORDERED: hydrALAZINE 20 MG/1 ML VIAL IV PRN (23:16)
[2022-06-10] MEDS ORDERED: ALBUTEROL/IPRATROPIUM 3 ML NEB RESP TX PRN (23:16)
[2022-06-10] MEDS ORDERED: diphenhydrAMINE CAP 25 MG CAPSULE PO PRN (23:16)
[2022-06-10] MEDS ORDERED: VANCOMYCIN INJ 500 MG in SODIUM CHLORIDE 0.9% 100 ML IV PRN (23:40)
[2022-06-10] MEDS: ONDANSETRON 4 MG/2 ML VIAL IV PRN (23:59)
[2022-06-11] MEDS: SODIUM CHLORIDE 0.9% 1,000 ML IV SCH (00:58)
[2022-06-11] MEDS ORDERED: VANCOMYCIN INJ 750 MG in SODIUM CHLORIDE 0.9% 250 ML IV ONE (01:00)
[2022-06-11] MEDS: CLINDAMYCIN INJ 600 MG/50 ML PREMIX IV SCH ×3 (02:06→18:46)
[2022-06-11 04:19] LABS: Basophils % 0.4 % (0.0-0.8); Eosinophils # 0.2 10*3/uL (0.0-0.87); Hematocrit 25.3 VOL% (42.0-52.0); Hemoglobin 8.5 GM/DL (14.0-18.0); Immature Granulocytes % 0.6 %; Immature Granulocytes Absolute 0.05 #; Lymphocytes # 1.2 10*3/uL (1.4-4.0); Lymphocytes % 15.7 % (21.2-54.2); Mean Corpuscular HGB Conc 33.6 GM/DL (32-36); Mean Corpuscular Volume 94.8 FL (87-102); Mean Platelet Volume 11.6 FL (9.6-12.0); Monocytes # 0.5 10*3/uL (0.11-0.8); Monocytes % 6.7 % (1.7-12.7); Neutrophils % 73.6 % (38.7-73.9); Platelet Count 117 T/CUMM (130-400); Red Blood Count 2.67 MC/CUMM (3.8-5.5); Red Cell Distribution Width 13.7 % (9.3-17.3); White Blood Count 7.9 T/CUMM (4-12)
[2022-06-11 04:37] LABS: Hypochromia Slight
[2022-06-11 05:05] LABS: Calcium 8.3 MG/DL (8.5-10.1); Osmolality,Calculated 291.8 MOS/KG (273-304); Potassium 4.4 MMOL/L (3.5-5.1)
[2022-06-11] MEDS: INSULIN LISPRO 100 UNIT/ML SUBCUT SCH ×3 (08:41→21:36)
[2022-06-11] MEDS: PANTOPRAZOLE 40 MG TABLET PO SCH (08:55)
[2022-06-11] MEDS: hydrALAZINE 25 MG TABLET PO SCH ×3 (08:55→21:36)
[2022-06-11] MEDS: BACILLUS COAGULANS CAPLET PO SCH (09:40)
[2022-06-11] MEDS: CALCIUM ACETATE 667 MG CAPSULE PO SCH ×2 (16:53→17:19)
[2022-06-11] MEDS: HEPARIN 5,000 UNIT/1 ML VIAL SUBCUT SCH (21:36)
[2022-06-12] MEDS: CLINDAMYCIN INJ 600 MG/50 ML PREMIX IV SCH ×4 (01:15→23:44)
[2022-06-12 05:37] LABS: Basophils # 0.1 10*3/uL (0.0-0.2); Basophils % 0.5 % (0.0-0.8); Eosinophils # 0.3 10*3/uL (0.0-0.87); Eosinophils % 2.9 % (0.00-10.9); Hematocrit 30.9 VOL% (42.0-52.0); Hemoglobin 9.8 GM/DL (14.0-18.0); Immature Granulocytes % 0.8 %; Immature Granulocytes Absolute 0.07 #; Mean Corpuscular HGB Conc 31.7 GM/DL (32-36); Mean Corpuscular Volume 97.2 FL (87-102); Mean Platelet Volume 10.3 FL (9.6-12.0); Monocytes # 0.6 10*3/uL (0.11-0.8); Monocytes % 6.9 % (1.7-12.7); Neutrophils % 77.9 % (38.7-73.9); Platelet Count 209 T/CUMM (130-400); Red Blood Count 3.18 MC/CUMM (3.8-5.5); Red Cell Distribution Width 13.6 % (9.3-17.3); White Blood Count 9.1 T/CUMM (4-12)
[2022-06-12 06:49] LABS: Bilirubin,Total 0.7 MG/DL (0.20-1.00); Calcium 9.1 MG/DL (8.5-10.1); Osmolality,Calculated 280.1 MOS/KG (273-304); Potassium 4.7 MMOL/L (3.5-5.1); Total Protein 7.9 G/DL (6.4-8.2)
[2022-06-12] MEDS: INSULIN LISPRO 100 UNIT/ML SUBCUT SCH ×4 (08:07→20:43)
[2022-06-12] MEDS: CALCIUM ACETATE 667 MG CAPSULE PO SCH ×3 (09:30→16:57)
[2022-06-12] MEDS: BACILLUS COAGULANS CAPLET PO SCH (09:31)
[2022-06-12] MEDS: PANTOPRAZOLE 40 MG TABLET PO SCH (09:33)
[2022-06-12] MEDS: hydrALAZINE 25 MG TABLET PO SCH ×3 (09:33→20:44)
[2022-06-12] MEDS: HEPARIN 5,000 UNIT/1 ML VIAL SUBCUT SCH (10:24)
[2022-06-12] MEDS ORDERED: VANCOMYCIN INJ 500 MG in SODIUM CHLORIDE 0.9% 100 ML IV ONE (13:00)
[2022-06-12] MEDS: SODIUM CHLORIDE 0.9% 1,000 ML IV SCH (19:03)
[2022-06-13] MEDS: INSULIN LISPRO 100 UNIT/ML SUBCUT SCH ×4 (08:17→21:08)
[2022-06-13] MEDS: PANTOPRAZOLE 40 MG TABLET PO SCH (08:50)
[2022-06-13] MEDS: hydrALAZINE 25 MG TABLET PO SCH ×3 (08:50→21:08)
[2022-06-13] MEDS: CLINDAMYCIN INJ 600 MG/50 ML PREMIX IV SCH ×3 (08:52→23:14)
[2022-06-13] MEDS ORDERED: LIDOCAINE 1% 5 ML VIAL ONE (10:31)
[2022-06-13] MEDS ORDERED: BUPIVACAINE MPF 0.25% 10 ML VIAL ONE ×2 (10:31→11:14)
[2022-06-13] MEDS ORDERED: NEOMYCIN/POLYMYXIN/BACITRACIN OINT 28.4 GM TUBE TOP ONE (10:31)
[2022-06-13] MEDS ORDERED: MIDAZOLAM 2 MG/2 ML VIAL ONE (10:31)
[2022-06-13] MEDS ORDERED: fentaNYL 100 MCG/2 ML VIAL ONE (10:31)
[2022-06-13] MEDS ORDERED: ONDANSETRON 4 MG/2 ML VIAL ONE (11:08)
[2022-06-13] MEDS ORDERED: ETOMIDATE 40 MG/20 ML VIAL IV ONE (11:08)
[2022-06-13] MEDS ORDERED: LIDOCAINE 2% 5 ML VIAL ONE (11:08)
[2022-06-13] MEDS ORDERED: PHENYLEPHRINE 1 MG/10 ML SYRINGE IV ONE ×3 (11:08→11:28)
[2022-06-13] MEDS ORDERED: propofoL 200 MG/20 ML VIAL IV ONE (11:08)
[2022-06-13] MEDS ORDERED: SEVOFLURANE 1 UNIT/15 MINUTE INH ONE (11:08)
[2022-06-13] MEDS ORDERED: ePHEDrine 50 MG/ML VIAL ONE (11:29)
[2022-06-13] MEDS: CALCIUM ACETATE 667 MG CAPSULE PO SCH ×3 (12:00→16:29)
[2022-06-13] MEDS ORDERED: MORPHINE 2 MG/1 ML SYRINGE IV PRN (12:04)
[2022-06-13] MEDS ORDERED: HEPARIN 10,000 UNIT/10 ML VIAL IV SCH (15:30)
[2022-06-13] MEDS: BACILLUS COAGULANS CAPLET PO SCH (16:29)
[2022-06-13] MEDS ORDERED: VANCOMYCIN INJ 500 MG in SODIUM CHLORIDE 0.9% 100 ML IV ONE (17:00)
[2022-06-14] MEDS ORDERED: POLYETHYLENE GLYCOL POWDER 17 GM PACK PO PRN (08:34)
[2022-06-14] MEDS ORDERED: POLYETHYLENE GLYCOL POWDER 17 GM PACK PO ONE (08:35)
[2022-06-14] MEDS: INSULIN LISPRO 100 UNIT/ML SUBCUT SCH ×4 (08:47→22:07)
[2022-06-14] MEDS: CALCIUM ACETATE 667 MG CAPSULE PO SCH ×3 (08:49→17:02)
[2022-06-14] MEDS: PANTOPRAZOLE 40 MG TABLET PO SCH (08:49)
[2022-06-14] MEDS: BACILLUS COAGULANS CAPLET PO SCH (08:49)
[2022-06-14] MEDS: CLINDAMYCIN INJ 600 MG/50 ML PREMIX IV SCH (08:52)
[2022-06-14] MEDS: hydrALAZINE 25 MG TABLET PO SCH ×3 (09:45→22:07)
[2022-06-14] MEDS: cefTRIAXone 1,000 MG in SODIUM CHLORIDE 0.9% 100 ML IV SCH (12:32)
[2022-06-14] MEDS: MORPHINE 2 MG/1 ML SYRINGE IV PRN ×2 (15:24→22:06)
[2022-06-14] MEDS: ONDANSETRON 4 MG/2 ML VIAL IV PRN (18:50)
[2022-06-15 03:54] LABS: Basophils % 0.5 % (0.0-0.8); Eosinophils # 0.2 10*3/uL (0.0-0.87); Eosinophils % 2.2 % (0.00-10.9); Hematocrit 28.3 VOL% (42.0-52.0); Hemoglobin 9.1 GM/DL (14.0-18.0); Immature Granulocytes % 0.4 %; Immature Granulocytes Absolute 0.03 #; Lymphocytes % 12.7 % (21.2-54.2); Mean Corpuscular HGB Conc 32.2 GM/DL (32-36); Mean Corpuscular Volume 98.6 FL (87-102); Mean Platelet Volume 10.8 FL (9.6-12.0); Monocytes # 0.7 10*3/uL (0.11-0.8); Monocytes % 9.2 % (1.7-12.7); Platelet Count 196 T/CUMM (130-400); Red Blood Count 2.87 MC/CUMM (3.8-5.5); Red Cell Distribution Width 13.5 % (9.3-17.3); White Blood Count 7.8 T/CUMM (4-12)
[2022-06-15 04:12] LABS: Calcium 9.6 MG/DL (8.5-10.1); Osmolality,Calculated 284.5 MOS/KG (273-304); Potassium 4.7 MMOL/L (3.5-5.1)
[2022-06-15] MEDS: INSULIN LISPRO 100 UNIT/ML SUBCUT SCH ×2 (08:23→12:44)
[2022-06-15] MEDS: CALCIUM ACETATE 667 MG CAPSULE PO SCH ×2 (12:33→12:42)
[2022-06-15] MEDS: hydrALAZINE 25 MG TABLET PO SCH ×2 (12:42→16:11)
[2022-06-15] MEDS: PANTOPRAZOLE 40 MG TABLET PO SCH (12:42)
[2022-06-15] MEDS: BACILLUS COAGULANS CAPLET PO SCH (12:45)
[2022-06-15] MEDS: cefTRIAXone 1,000 MG in SODIUM CHLORIDE 0.9% 100 ML IV SCH (12:51)
[2022-06-15 14:16] VITALS: BP 126/72
== END 2022-06-15 16:05 | disposition home or self-care (01) | DRG 255 ==
LOC: EDBD → EDUNIT# → N.ED 21:07 → N.EDINP 23:16 → N.5E 06-11 16:51
PROVIDERS: ADMIT Internal Medicine; ATTEND Internal Medicine